=== PATIENT | female | born 1950 | race Caucasian/White ===

== ENCOUNTER 2018-10-25 06:45 | Inpatient (IN) | payer OTHER ==
--- NOTE | 2018-10-25 07:46 | PDOC ---
History of Present Illness - General Chief Complaint: Injury Stated Complaint: FALL Time Seen by Provider: 10/25/18 07:15 - History of Present Illness Initial Comments: Rita Daniels is a 68yo woman with a PMH of HTN, HLD, morbid obesity, and chronic BLE lymphedema who presents reporting slowly worsening leg swelling and several falls at home recently. She reports that she has chronic problems with leg swelling, and she had a previous admission last year at [facility] with "very bad" swelling. At that time, she had not been taking her prescribed medications. She went to rehab after her discharge and was doing much better, but she went back to live in an apartment without assistance afterwards and has slowly been declining since then. She states that she is now compliant with all of her medications. Ms Daniels reports that she was told to elevate her legs, which does improve her leg swelling, but she has not been doing so recently. Subsequently, the leg swelling has worsened over the past few weeks. She feels that it has become much worse over the past week especially. Due to the leg swelling, she says that her legs "give out" when she tries to walk. She is minimally ambulatory and is able to move around her apartment, but she does spend most of her time sitting or laying down. Recently she has had several episodes where she has been unable to support herself. Yesterday evening , she tried to stand from a chair and instead slid to the ground. This is typical of the events, and she denies ever having a fall from standing, LOC, head injury, or other musculoskeletal injury. She denies any chest pain, SOB, dizziness, or other symptoms preceding the falls. Past History - Suicide/Smoking/Psychosocial Hx Smoking History: Never smoked Have you smoked in the past 12 months: No Information on smoking cessation initiated: No Hx Alcohol Use: No Drug/Substance Use Hx: No Review of Systems - Review of Systems Comments:: General: No fevers, no chills, no weight or appetite change, no malaise HEENT: No changes in vision, no changes in hearing, +nasal congestion, no sore throat CV: No chest pain, no palpitations, +chronic BLE edema Pulm: No SOB, no cough, no wheezing GI: No nausea or vomiting, no change in bowel habits, no melena : No frequency, no urgency, no dysuria Musc: See HPI. No recent injury, no back pain. Skin: No rash, no lesions, no erythema Endo: No excessive thirst, no heat/cold intolerance Heme: No unusual bruising or bleeding, no swollen glands Neuro: No syncope, no numbness/tingling, no focal weakness Vasc: No claudication Psych: No recent change in mood, no SI or HI *Physical Exam - Vital Signs Last Vital Signs Temp Pulse Resp BP Pulse Ox 98.1 F 74 18 142/78 100 10/25/18 06:53 10/25/18 06:53 10/25/18 06:53 10/25/18 06:53 10/25/18 06:53 - Physical Exam Comments: General: No acute distress, morbidly obese, malodorous HEENT: PERRL, EOMI, MMM, voice normal, no LAD Cards: RRR, no murmur appreciated Pulm: Comfortable on room air, clear to auscultation bilaterally Abd: Soft, nontender, nondistended, obese Ext: Atraumatic. Notable nonpitting BLE edema. Sensation intact to light touch. Strength 4/5 and equal bilaterally. R heel with small open wound, appears sencondary to minor injury, no surrounding erythema, purulence or sign of infection. No TTP Vasc: Extremities WWP. Skin: No rashes or lesions. BLE skin dirty, flaking Neuro: A&Ox3, CN grossly intact, normal speech, motor/sensory symmetric Psych: Mood appropriate to situation Moderate Sedation - Procedure Monitoring Vital Signs: Procedure Monitoring Vital Signs Temperature 98.1 F 10/25/18 06:53 Pulse Rate 74 10/25/18 06:53 Respiratory Rate 18 10/25/18 06:53 Blood Pressure 142/78 10/25/18 06:53 O2 Sat by Pulse Oximetry (%) 100 10/25/18 06:53 ED Treatment Course - LABORATORY CBC & Chemistry Diagram: 10/25/18 10:09 10/25/18 10:09 Medical Decision Making - Medical Decision Making 10/25/18 07:36 Rita Daniels is a 68yo woman with a PMH of HTN, HLD, morbid obesity, and chronic BLE lymphedema who presents reporting slowly worsening leg swelling and multiple episodes of her legs "not supporting" her over the past week. She reports compliance with her medication but not with leg elevation. - Worsening BLE swelling most likely due to chronic condition, lack of elevation , possibly poor diet - No h/o CHF or kidney disease, but could be contributing - No h/o CAD or CO, but worsening swelling could be due to acute change in cardiac function - CBC, CMP, mag, phos, trop, CXR, EKG to evaluate 10/25/18 09:02 - Following discussion with Dr Munguia, will order BLE venous duplex to rule out DVT. Ms Daniels does not have any significant risk factors other than report of minimal activity/ambulation, but given her habitus cannot rule out by physical exam. Low suspicion, but non-invasive test with minimal risk 10/25/18 10:21 - EKG reviewed. NSR without abnormalities - Difficulty drawing labs in ED, but now sent to lab - Pt to US for duplex 10/25/18 11:00 - Labs reviewed. Unremarkable other than mild hypokalemia and hypomagnesemia - will replete. Trop negative - CXR with enlarged heart, no acute abnormalities - Duplex completed. Reviewed; no thrombus noted. Final radiology read pending - Discussed with Ms Daniels. Plan to admit due to difficulty ambulating and caring for self at home; message sent to admitting team. 10/25/18 11:24 - Spoke to Dr Sahu, will admit for inpatient management. - 40mg IV furosemide for lymphedema. Discussed with Dr Munguia. Rachna Glover PGY1 *DC/Admit/Observation/Transfer Diagnosis at time of Disposition: Lymphedema of both lower extremities - Discharge Dispostion Decision to Admit order: Yes - Referrals - Patient Instructions - Post Discharge Activity
--- NOTE | 2018-10-25 08:14 | PDOC ---
Attending Attestation - Resident Resident Name: Rachna Glover - ED Attending Attestation I have performed the following: I have examined & evaluated the patient, The case was reviewed & discussed with the resident, I agree w/resident's findings & plan, Exceptions are as noted - HPI HPI: 10/25/18 08:20 68 year old female history of hypertension, hyperlipidemia, obesity, chronic bilateral lower extremity lymphedema presents with increasing lower extremities edema for last week and difficulty ambulating. Patient states she typically ambulates with a walker. Noticed that she subjectively feels bilateral heavier lower extremities. She reports adherence to her medications. Denies chest pain or short of breath or recent illnesses. The patient is now unable to get up from her seat. When she tries to get up she slipped right back down. Denies trauma or falls. The patient reported approximately one year ago being admitted to [facility] for the same issue. She was told that this was edema and discharged to subacute rehabilitation which she felt better. She currently lives at home with no assistance. - Physicial Exam PE: 10/25/18 08:20 GENERAL: Awake, alert, and fully oriented, in no acute distress. Morbidity obesity HEAD: No signs of trauma EYES: EOMI, sclera anicteric, conjunctiva clear ENT: Auricles normal inspection, hearing grossly normal, nares paten, Moist mucosa NECK: Normal ROM, supple, LUNGS: Breath sounds equal, clear to auscultation bilaterally. No wheezes, and no crackles HEART: Regular rate and rhythm, normal S1 and S2, no murmurs, rubs or gallops ABDOMEN: Soft, nontender, No guarding, no rebound. No masses EXTREMITIES: Normal range of motion, No clubbing or cyanosis. No cords, erythema, or tenderness. + lower extremity bilateral lymphedema. NEUROLOGICAL: Cranial nerves II through XII grossly intact. Normal speech SKIN: Warm, Dry, normal turgor, no rashes or lesions noted. - Medical Decision Making 10/25/18 08:23 Vital Signs Temp Pulse Resp BP Pulse Ox 98.1 F 74 18 142/78 100 10/25/18 06:53 10/25/18 06:53 10/25/18 06:53 10/25/18 06:53 10/25/18 06:53 68 year old with inability to ambulate 2/2 increasing lower extremity edema. Differential includes: CHF, hypoalbuminemia, LAINEY, bilateral DVTs, worsening lymphedema. Chest xray, labs, UA, Duplex. Given ability to ambulate, pt is unsafe for discharge. Will admit for PT and case management. 10/25/18 11:28 CBC, BMP 10/25/18 10:09 10/25/18 10:09 CMP Sodium 142 mmol/L (136-145) 10/25/18 10:09 Potassium 3.0 mmol/L (3.5-5.1) L 10/25/18 10:09 Chloride 102 mmol/L (98-107) 10/25/18 10:09 Carbon Dioxide 32 mmol/L (21-32) 10/25/18 10:09 Anion Gap 8 MMOL/L (8-16) 10/25/18 10:09 BUN 21 mg/dL (7-18) H 10/25/18 10:09 Creatinine 0.7 mg/dL (0.55-1.3) 10/25/18 10:09 Creat Clearance w eGFR > 60 (>60) 10/25/18 10:09 Random Glucose 101 mg/dL (74-106) 10/25/18 10:09 Calcium 9.2 mg/dL (8.5-10.1) 10/25/18 10:09 Phosphorus 3.9 mg/dL (2.5-4.9) 10/25/18 10:09 Magnesium 1.7 mg/dL (1.8-2.4) L 10/25/18 10:09 Total Bilirubin 0.9 mg/dL (0.2-1) 10/25/18 10:09 AST 24 U/L (15-37) 10/25/18 10:09 ALT 25 U/L (13-61) 10/25/18 10:09 Alkaline Phosphatase 81 U/L (45-117) 10/25/18 10:09 Creatine Kinase 594 IU/L (26-192) H 10/25/18 10:09 Creatine Kinase Index 1.5 % (0.0-5.0) 10/25/18 10:09 CK-MB (CK-2) 9.4 ng/mL (0.5-3.6) H 10/25/18 10:09 Troponin I 0.02 ng/ml (0.00-0.05) 10/25/18 10:09 B-Natriuretic Peptide 182.2 pg/ml (5-125) H 10/25/18 10:09 Total Protein 7.2 g/dl (6.4-8.2) 10/25/18 10:09 Albumin 3.8 g/dl (3.4-5.0) 10/25/18 10:09 Chest xray reviewed. 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 This is likely contributing to her lower extremity swelling. Will need further evaluation as an inpatient. Heart Score/ECG Review #1 ECG reviewed & interpreted by me at: 08:10 10/25/18 08:09 NSR 66, no std/gena, normal axis, normal intervals, QTC 442 msec
[2018-10-25 10:20] LABS: BASO % 0.7 % (0-2.0); EOS % 1.7 % (0-4.5); HEMOGLOBIN 12.5 GM/dL (10.7-15.3); LYMPH % 13.5 % (8-40); MCH 30.6 pg (25.7-33.7); MCHC 34.7 g/dl (32.0-36.0); MEAN CELL VOLUME 88.1 fl (80-96); MEAN PLT VOLUME 8.1 fl (7.5-11.1); MONO % 6.6 % (3.8-10.2); NEUT % 77.5 % (42.8-82.8); PLATELET COUNT 261 K/MM3 (134-434); RBC 4.08 M/mm3 (3.60-5.2); RDW 14.1 % (11.6-15.6); WHITE BLOOD COUNT 8.8 K/mm3 (4.0-10.0)
[2018-10-25 10:52] LABS: ALBUMIN 3.8 g/dl (3.4-5.0); ALK PHOS 81 U/L (45-117); ANION GAP 8 MMOL/L (8-16); BILIRUBIN,TOTAL 0.9 mg/dL (0.2-1); BLOOD UREA NITROGEN 21 mg/dL (7-18); CALCIUM 9.2 mg/dL (8.5-10.1); CHLORIDE 102 mmol/L (98-107); CO2 32 mmol/L (21-32); CREATININE 0.7 mg/dL (0.55-1.3); GLUCOSE,RANDOM 101 mg/dL (74-106); MAGNESIUM 1.7 mg/dL (1.8-2.4); N-TERMINAL BNP 182.2 pg/ml (5-125); PHOSPHOROUS 3.9 mg/dL (2.5-4.9); SGOT/AST 24 U/L (15-37); SGPT/ALT 25 U/L (13-61); SODIUM 142 mmol/L (136-145); TOT PROT 7.2 g/dl (6.4-8.2)
[2018-10-25] MEDS ORDERED: POTASSIUM CHLORIDE TABS 20 MEQ TABLET.ER (FP) PO ONE ×2 (10:55→18:00)
[2018-10-25] MEDS ORDERED: MAGNESIUM SULF 50% (8.12 MEQ/2 ML-1 GM VIAL) IVPB ONE (10:55)
[2018-10-25] MEDS ORDERED: MAGNESIUM 1GM/D5W - 2 GM/200 ML IVPB IVPB ONE (11:12)
[2018-10-25] MEDS ORDERED: FUROSEMIDE 40 MG/4 ML INJECTABLE VIAL IVPUSH ONE (11:20)
--- NOTE | 2018-10-25 12:51 | HP ---
CHIEF COMPLAINT:LE pain and inability to ambulate PCP: Associated with [facility] HISTORY OF PRESENT ILLNESS: 68 y/o F w/PMH of HTN, HLD, morbid obesity, chronic B/L LE lymphedema presents for inability to ambulate and pain behind her knees. She has noted increased swelling her legs over the past few weeks which has been particularly worse over the last week. She has also had pain behind her knees for the past week and for the past 4 days has not been able to ambulate. She has fallen due to her inability to ambulate and but denies any trauma to her head and was able to slowly lower herself down last when she fell yesterday. She was seen at [facility] last year for a similar issue with swelling in her legs and was doing better after discharge at that time. She denies any cough, fevers, chills, nausea, vomiting, diarrhea, change in urination, SUTTON, dizziness, CP, SOB. She reports being compliant with her meds. ER course was notable for: (1) Lasix IV 40mg, Mg Sulf, K-dur PO (2) CXR (3) PAST MEDICAL HISTORY: HTN, HLD, morbid obesity, chronic B/L LE lymphedema PAST SURGICAL HISTORY: denies any surgeries Social History: Smokin/2 ppd for 3-4 years. Quit 8 months ago. Exposed to second hand smoke daily at home. Alcohol: Denies Drugs: Denies Family History: Lung Ca in grandfather HOME MEDICATIONS: Home Medications Medication Instructions Recorded Aspirin [Aspirin EC] 81 mg PO 10/25/18 Atorvastatin Ca [Lipitor] 20 mg PO HS 10/25/18 Calcium Carbonate/Vitamin D3 1 each PO 10/25/18 [Calcium 500 mg-Vit D3 600 Unit] Hydrochlorothiazide [Hctz -] 25 mg PO DAILY 10/25/18 Metoprolol Succinate 25 mg PO 10/25/18 Potassium Chloride 20 meq PO BID 10/25/18 REVIEW OF SYSTEMS CONSTITUTIONAL: Absent: fever, chills HEENT: Absent: visual changes CARDIOVASCULAR: +peripheral edema Absent: chest pain, syncope, palpitations, irregular heart rate, lightheadedness RESPIRATORY: Absent: cough, shortness of breath GASTROINTESTINAL: Absent: abdominal pain, nausea, vomiting, diarrhea, constipation, hematochezia GENITOURINARY: Absent: dysuria, frequency MUSCULOSKELETAL: +LE weakness and pain behind knees, inability to walk NEUROLOGIC: Absent: headache, dizziness PHYSICAL EXAMINATION Vital Signs - 24 hr 10/25/18 06:53 Temperature 98.1 F Pulse Rate 74 Respiratory 18 Rate Blood Pressure 142/78 O2 Sat by Pulse 100 Oximetry (%) GENERAL: Awake, alert, and fully oriented, in no acute distress. EYES: Pupils equal, round and reactive to light. No lid lag. EARS, NOSE, THROAT: Ears normal, nares patent NECK: Normal range of motion LUNGS: Breath sounds equal, clear to auscultation bilaterally. No wheezes, and no crackles. No accessory muscle use. HEART: Regular rate and rhythm, normal S1 and S2. 1/6 systolic murmur best heard in aortic region. ABDOMEN: Obese, Soft, nontender, not distended, normoactive bowel sounds, no guarding, no rebound, no masses. LOWER EXTREMITIES: 4+ b/l LE edema. Healing skin patches on soles of feet. No open lesions noted on legs. NEUROLOGICAL: Normal speech. PSYCHIATRIC: Cooperative. Good eye contact. Appropriate mood and affect. SKIN: Warm, dry Laboratory Results - last 24 hr 10/25/18 10/25/18 10:09 10:09 WBC 8.8 RBC 4.08 Hgb 12.5 Hct 36.0 MCV 88.1 MCH 30.6 MCHC 34.7 RDW 14.1 Plt Count 261 MPV 8.1 Absolute Neuts (auto) 6.9 Neutrophils % 77.5 Lymphocytes % 13.5 Monocytes % 6.6 Eosinophils % 1.7 Basophils % 0.7 Nucleated RBC % 0 Sodium 142 Potassium 3.0 L Chloride 102 Carbon Dioxide 32 Anion Gap 8 BUN 21 H Creatinine 0.7 Creat Clearance w eGFR > 60 Random Glucose 101 Calcium 9.2 Phosphorus 3.9 Magnesium 1.7 L Total Bilirubin 0.9 AST 24 ALT 25 Alkaline Phosphatase 81 Creatine Kinase 594 H Creatine Kinase Index 1.5 CK-MB (CK-2) 9.4 H Troponin I 0.02 B-Natriuretic Peptide 182.2 H Total Protein 7.2 Albumin 3.8 Imaging: CXR: Cardiomegaly. Unfolded aorta. Degenerative changes. Clear Lungs. ASSESSMENT/PLAN: 68 y/o F w/PMH of HTN, HLD, morbid obesity, chronic B/L LE lymphedema presents for inability to walk and LE pain. -Inability to ambulate secondary to worsening of chronic LE lymphedema and possible jamil's cysts -U/S done in ER reported as jamil cysts and no DVTs -Lasix 40 mg IV qd -PT -HTN -c/w diltiazem, hctz, lisinopril, metoprolol succ -HLD -c/w atorvastatin -DVT ppx -Lovenox SQ daily -FEN -no fluids -Monitor lytes -Hypokalemia repleted with 40 meq PO potassium. Will give another 40 meq PO potassium -Mg repleted in ER -Cardiac/low salt diet -Dispo: Monitor on M/S Visit type - Emergency Visit Emergency Visit: Yes ED Registration Date: 10/25/18 Care time: The patient presented to the Emergency Department on the above date and was hospitalized for further evaluation of their emergent condition. - New Patient This patient is new to me today: Yes Date on this admission: 10/25/18 - Critical Care Critical Care patient: No
--- NOTE | 2018-10-25 13:17 | PN ---
Teaching Attending Note Name of Resident: Josh Brown ATTENDING PHYSICIAN STATEMENT I saw and evaluated the patient. I reviewed the resident's note and discussed the case with the resident. I agree with the resident's findings and plan as documented. SUBJECTIVE: Complains of worsening LE pain and edema, decreased mobility, fall. No tenderness/redness/swelling/fever/chills. OBJECTIVE: Afebrile, Hemodynamically Stable. Last Vital Signs Temp Pulse Resp BP Pulse Ox 98.1 F 74 18 142/78 100 10/25/18 06:53 10/25/18 06:53 10/25/18 06:53 10/25/18 06:53 10/25/18 06:53 HEENT - Atraumatic, Normocephalic. Heart - S1, S2, RRR Lungs - clear to auscultation. Abdomen - High BMI, soft, non-tender. Bowel Sounds normal. Extremities - Severe edema+++. No calf/popliteal tenderness. Neuro - AAO x 3. Tone/Power normal all 4 extremities. Laboratory Results - last 24 hr 10/25/18 10/25/18 10:09 10:09 WBC 8.8 RBC 4.08 Hgb 12.5 Hct 36.0 MCV 88.1 MCH 30.6 MCHC 34.7 RDW 14.1 Plt Count 261 MPV 8.1 Absolute Neuts (auto) 6.9 Neutrophils % 77.5 Lymphocytes % 13.5 Monocytes % 6.6 Eosinophils % 1.7 Basophils % 0.7 Nucleated RBC % 0 Sodium 142 Potassium 3.0 L Chloride 102 Carbon Dioxide 32 Anion Gap 8 BUN 21 H Creatinine 0.7 Creat Clearance w eGFR > 60 Random Glucose 101 Calcium 9.2 Phosphorus 3.9 Magnesium 1.7 L Total Bilirubin 0.9 AST 24 ALT 25 Alkaline Phosphatase 81 Creatine Kinase 594 H Creatine Kinase Index 1.5 CK-MB (CK-2) 9.4 H Troponin I 0.02 B-Natriuretic Peptide 182.2 H Total Protein 7.2 Albumin 3.8 ASSESSMENT AND PLAN: 68 year old Obese female with HTN, Chronic bilateral Lymphedema, HLD, Depression , presents with worsening LE edema, worsening mobility, fall yesterday - slide of her chair onto the floor without head injury or loss of consciousness. She denies any tenderness/erythema/fever/chills. 1. Acute on Chronic Lower Extremity Lymphedema with discomfort and resulting decreased mobility/ambulatory dysfunction/fall Will treat with IV Lasix Monitor electrolytes PT requested. 2. HTN - Continue Diltiazem, HCTZ, Lisinopril, Toprol XL 3. HLD - Continue Simvastatin 4. Hypokalemia - will replete DVT Px - Lovenox SQ.
[2018-10-25] MEDS ORDERED: ACETAMINOPHEN 325 MG TABLET (FP) PO PRN (14:25)
[2018-10-25] MEDS: ENOXAPARIN NA (PORCINE) 40 MG/0.4 ML DISP.SYRIN SQ SCH (18:27)
[2018-10-25] MEDS: ATORVASTATIN CA 20 MG TABLET (FP) PO SCH (21:42)
[2018-10-26 06:25] LABS: BASO % 0.7 % (0-2.0); EOS % 2.8 % (0-4.5); HEMATOCRIT 32.5 % (32.4-45.2); HEMOGLOBIN 11.4 GM/dL (10.7-15.3); LYMPH % 19.4 % (8-40); MCH 30.6 pg (25.7-33.7); MEAN CELL VOLUME 87.6 fl (80-96); MEAN PLT VOLUME 8.2 fl (7.5-11.1); MONO % 7.4 % (3.8-10.2); NEUT % 69.7 % (42.8-82.8); PLATELET COUNT 239 K/MM3 (134-434); RBC 3.71 M/mm3 (3.60-5.2); WHITE BLOOD COUNT 6.8 K/mm3 (4.0-10.0)
[2018-10-26 06:53] LABS: ALK PHOS 61 U/L (45-117); ANION GAP 8 MMOL/L (8-16); BILIRUBIN,TOTAL 0.8 mg/dL (0.2-1); BLOOD UREA NITROGEN 22 mg/dL (7-18); CALCIUM 8.8 mg/dL (8.5-10.1); CHLORIDE 103 mmol/L (98-107); CO2 31 mmol/L (21-32); CREATININE 0.7 mg/dL (0.55-1.3); GLUCOSE,RANDOM 100 mg/dL (74-106); MAGNESIUM 1.9 mg/dL (1.8-2.4); PHOSPHOROUS 4.1 mg/dL (2.5-4.9); POTASSIUM 3.6 mmol/L (3.5-5.1); SGOT/AST 18 U/L (15-37); SGPT/ALT 19 U/L (13-61); SODIUM 142 mmol/L (136-145); TOT PROT 5.8 g/dl (6.4-8.2)
[2018-10-26] MEDS: LISINOPRIL 20 MG TABLET (FP) PO SCH (12:11)
[2018-10-26] MEDS: PARoxetine HCL 20 MG TABLET (FP) PO SCH (12:11)
[2018-10-26] MEDS: ASPIRIN COATED 81 MG TABLET.EC PO SCH (12:11)
[2018-10-26] MEDS: HYDROCHLOROTHIAZIDE 25 MG TABLET (FP) PO SCH (12:11)
[2018-10-26] MEDS: metoPROLOL SUCCINATE 25 MG TAB.SR.24H (FP) PO SCH (12:11)
[2018-10-26] MEDS: FUROSEMIDE 40 MG/4 ML INJECTABLE VIAL IVPUSH SCH (12:12)
[2018-10-26] MEDS: ENOXAPARIN NA (PORCINE) 40 MG/0.4 ML DISP.SYRIN SQ SCH (12:12)
[2018-10-26 13:38] VITALS: BMI 52.8
--- NOTE | 2018-10-26 14:24 | PN ---
Progress Note (short form) - Note Progress Note: SUBJECTIVE: Feels some improvement in her Le edema, feeling less tight with increased mobility of toes and ankles. No tenderness/redness/swelling/fever/ chills. OBJECTIVE: Afebrile, Hemodynamically Stable. Last Vital Signs Temp Pulse Resp BP Pulse Ox 98.3 F 94 H 20 148/94 99 10/26/18 11:55 10/26/18 11:55 10/26/18 11:55 10/26/18 11:55 10/25/18 21:00 HEENT - Atraumatic, Normocephalic. Heart - S1, S2, RRR Lungs - clear to auscultation. Abdomen - High BMI, soft, non-tender. Bowel Sounds normal. Extremities - Severe edema++. No erythema. No calf/popliteal tenderness. Neuro - AAO x 3. Tone/Power normal all 4 extremities. Laboratory Results - last 24 hr 10/26/18 10/26/18 05:50 05:50 WBC 6.8 RBC 3.71 Hgb 11.4 Hct 32.5 MCV 87.6 MCH 30.6 MCHC 35.0 RDW 14.0 Plt Count 239 MPV 8.2 Absolute Neuts (auto) 4.7 Neutrophils % 69.7 Lymphocytes % 19.4 D Monocytes % 7.4 Eosinophils % 2.8 Basophils % 0.7 Nucleated RBC % 0 Sodium 142 Potassium 3.6 Chloride 103 Carbon Dioxide 31 Anion Gap 8 BUN 22 H Creatinine 0.7 Creat Clearance w eGFR > 60 Random Glucose 100 Calcium 8.8 Phosphorus 4.1 Magnesium 1.9 Total Bilirubin 0.8 AST 18 ALT 19 Alkaline Phosphatase 61 Total Protein 5.8 L Albumin 3.0 L Current Medications Generic Name Dose Route Start Last Admin Trade Name Freq PRN Reason Stop Dose Admin Acetaminophen 650 mg 10/25/18 14:25 Tylenol - PO Q6H PRN PAIN 1-3 Aspirin 81 mg 10/26/18 10:00 10/26/18 12:11 Ecotrin - PO 81 mg DAILY YULI Administration Atorvastatin Calcium 20 mg 10/25/18 22:00 10/25/18 21:42 Lipitor - PO 20 mg HS YULI Administration Diltiazem HCl 180 mg 10/26/18 10:00 10/26/18 12:11 Cardizem Cd - PO 180 mg DAILY YULI Administration Enoxaparin Sodium 40 mg 10/25/18 14:30 10/26/18 12:12 Lovenox - SQ 40 mg DAILY YULI Administration Furosemide 40 mg 10/26/18 10:00 10/26/18 12:12 Lasix Injection - IVPUSH 40 mg DAILY YULI Administration Hydrochlorothiazide 25 mg 10/26/18 10:00 10/26/18 12:11 Hctz - PO 25 mg DAILY YULI Administration Lisinopril 40 mg 10/26/18 10:00 10/26/18 12:11 Prinivil PO 40 mg DAILY YULI Administration Metoprolol Succinate 25 mg 10/26/18 10:00 10/26/18 12:11 Toprol Xl - PO 25 mg DAILY YULI Administration Paroxetine HCl 40 mg 10/26/18 10:00 10/26/18 12:11 Paxil - PO 40 mg DAILY YULI Administration ASSESSMENT AND PLAN: 68 year old Obese female with HTN, Chronic bilateral Lymphedema, HLD, Depression , presents with worsening LE edema, worsening mobility, fall 10/24 - slid of her chair onto the floor without head injury or loss of consciousness. She denies any LE tenderness/erythema or fever/chills. 1. Acute on Chronic Lower Extremity Lymphedema with discomfort and resulting decreased mobility/ambulatory dysfunction/fall Will continue IV Lasix Monitor electrolytes PT eval and likely SNF/Rehab placement. Patient requesting Ortho eval for BIlateral Hidalgo Cysts. 2. HTN - Continue Diltiazem, HCTZ, Lisinopril, Toprol XL 3. HLD - Continue Simvastatin 4. Hypokalemia - resolved s/p repletion. 5. Depression - continue Paxil. DVT Px - Lovenox SQ. Visit type - Emergency Visit Emergency Visit: Yes ED Registration Date: 10/25/18 Care time: The patient presented to the Emergency Department on the above date and was hospitalized for further evaluation of their emergent condition. - New Patient This patient is new to me today: No - Critical Care Critical Care patient: No - Discharge Referral Referred to [facility] No
--- NOTE | 2018-10-26 17:08 | CONSULT ---
Consult - text type - Consultation Consultation Note: ORTHOPEDIC SURGERY CONSULTATION NOTE Department of Orthopedic Surgery HISTORY OF PRESENT ILLNESS Rita Daniels is a 68 year old female with a history of lymphedema, morbid obesity, HTN, HLD who was admitted to [facility] with bilateral knee pain, worsening bilateral lower extremity swelling, and difficulty ambulating. The orthopedic service was consulted for bilateral knee pain and bilateral Hidalgo's cyst seen on ultrasound. Her knee pain began insidiously about 2 years ago with no specific incident. She was admitted once before for a the same problem at an outside hospital. She went to rehab and her condition improved. Her knee pain has since gotten progressively worse and she recently noticed increasing swelling in both lower extremities. She has had difficulty ambulating over the past 3 days. The patient notes sharp pain to bilateral knees which improves with rest. She denies any other pain. Denies numbness, tingling or other constitutional complaints. Denies tobacco use, drug use, alcohol abuse. The patient lives with family and uses a walker at baseline. Active Problems Problem Status Category Onset Lymphedema of both lower extremities Acute Medical Social History Smoking history Never smoked Hx Alcohol Use No Allergies Allergy/AdvReac Type Severity Reaction Status Date / Time No Known Allergies Allergy Verified 10/25/18 14:25 Active Medications Generic Name Dose Route Start Last Admin Trade Name Freq PRN Reason Stop Dose Admin Acetaminophen 650 mg 10/25/18 14:25 Tylenol - PO Q6H PRN PAIN 1-3 Aspirin 81 mg 10/26/18 10:00 10/26/18 12:11 Ecotrin - PO 81 mg DAILY YULI Administration Atorvastatin Calcium 20 mg 10/25/18 22:00 10/25/18 21:42 Lipitor - PO 20 mg HS YULI Administration Diltiazem HCl 180 mg 10/26/18 10:00 10/26/18 12:11 Cardizem Cd - PO 180 mg DAILY YULI Administration Enoxaparin Sodium 40 mg 10/25/18 14:30 10/26/18 12:12 Lovenox - SQ 40 mg DAILY YULI Administration Furosemide 40 mg 10/26/18 10:00 10/26/18 12:12 Lasix Injection - IVPUSH 40 mg DAILY YULI Administration Hydrochlorothiazide 25 mg 10/26/18 10:00 10/26/18 12:11 Hctz - PO 25 mg DAILY YULI Administration Lisinopril 40 mg 10/26/18 10:00 10/26/18 12:11 Prinivil PO 40 mg DAILY YULI Administration Metoprolol Succinate 25 mg 10/26/18 10:00 10/26/18 12:11 Toprol Xl - PO 25 mg DAILY YULI Administration Paroxetine HCl 40 mg 10/26/18 10:00 10/26/18 12:11 Paxil - PO 40 mg DAILY YULI Administration Vital Signs (last) Temp Pulse Resp BP Pulse Ox 99.9 F H 93 H 20 102/63 99 10/26/18 14:00 10/26/18 14:00 10/26/18 14:00 10/26/18 14:00 10/25/18 21:00 Intake and Output 10/24/18 10/25/18 10/26/18 23:59 23:59 23:59 Intake Total 455 Balance 455 Intake: Oral 455 Other: Voiding Method Incontinent Incontinent # Unmeasured Voids Void 3 2 Bowel Movement No Weight 297 lb 289 lb Height 5 ft 2 in 5 ft 2 in Body Mass Index (BMI) 54.3 52.8 Weight Measurement Method Built in [facility] Patient Lift Scale Weight Measurement Method Estimated by Staff Laboratory 10/26/18 05:50 10/26/18 05:50 FAMILY HISTORY Unknown REVIEW OF SYMPTOMS A twelve-point review of systems was performed and was negative except as noted in HPI. PHYSICAL EXAM Constitutional: Alert and oriented to person, place, and time. No acute distress , appropriate mood and affect. HEENT: Normocephalic, atraumatic Cardiovascular: Regular rate and rhythm, extremities warm, no cyanosis. Pulmonary: Breathing comfortably, normal air movement, no audible wheezing. Right Upper Extremity: No tenderness to palpation. Full passive and active ROM, free from pain. 2+ radial pulses; Cap refill brisk. Left Upper Extremity: No tenderness to palpation. Full passive and active ROM, free from pain. 2+ radial pulses; Cap refill brisk. Right Lower Extremity: Significant lymphedema. Skin warm, dry, and intact. Muscle mass equal and symmetric to contralateral side. No atrophy noted. No masses or effusions noted. Tender to palpation at right knee; nontender throughout rest of extremity. No cords or calf tenderness. Passive and active ROM limited due to pain. EHL/TA/GS motor intact; SILT distally; 2+ DP pulses; Cap refill brisk. Compartments soft. Tone and reflexes normal. Left Lower Extremity: Significant lymphedema. Skin warm, dry, and intact. Muscle mass equal and symmetric to contralateral side. No atrophy noted. No masses or effusions noted. Tender to palpation at right knee; nontender throughout rest of extremity. No cords or calf tenderness. Passive and active ROM limited due to pain. EHL/TA/GS motor intact; SILT distally; 2+ DP pulses; Cap refill brisk. Compartments soft. Tone and reflexes normal. IMAGING I personally reviewed bilateral knee radiographs. 2 views of each knee are limited. They show significant degenerative changes of bilateral knees. No fracture or dislocation. Doppler ultrasound negative for DVT. ASSESSMENT AND PLAN Rita Daniels is a 68 year old female with a history of lymphedema presenting with (1) bilateral knee arthritis, and (2) bilateral Hidalgo's cysts. - We have reviewed the imaging and clinical findings in detail, as well as their potential implications. We had a long discussion with the patient about her knees. We discussed surgical and nonsurgical options for the treatment of knee arthritis. She should work to maintain her range of motion. She should also ice frequently and avoid activities that make her knees hurt. We discussed the use of tylenol, NSAIDs, cortisone injections, physical therapy, bracing, and a weight loss program. Due to the significant swelling and lymphedema in her lower extremities, she is not a candidate for a total knee replacement. - No acute orthopedic intervention at this time - Pain control: minimize narcotic use - NSAIDs if patient is able to tolerate and there are no medical contraindications - DVT prophylaxis - Ice/Elevation - Elevate HOB, encourage oral intake - Appreciate medical management (Nutrition optimization, decubitus precautions heel/sacrum) - PT/OT to work on decreasing swelling/lymphedema; work on quadriceps and hamstring stretching and strengthening exercises, with core straightening. - WBAT All questions were answered. Thank you for involving our team in the care of this patient. We will follow the patient with you. Please call us at [phone] with questions.
--- NOTE | 2018-10-26 19:10 | EKG ---
Test Reason : Blood Pressure : / mmHG Vent. Rate : 066 BPM Atrial Rate : 066 BPM P-R Int : 154 ms QRS Dur : 086 ms QT Int : 422 ms P-R-T Axes : 057 039 076 degrees QTc Int : 442 ms NORMAL SINUS RHYTHM NORMAL ECG NO PREVIOUS ECGS AVAILABLE Confirmed by VALENTINE BROWNLEE MD ([id number]) on 10/26/2018 7:09:51 PM Referred By: Confirmed By:VALENTINE BROWNLEE MD
[2018-10-26] MEDS: ATORVASTATIN CA 20 MG TABLET (FP) PO SCH (22:04)
[2018-10-27] MEDS ORDERED: PT OWN MED DRAWER 7, Y5N ONE (09:34)
[2018-10-27] MEDS: FUROSEMIDE 40 MG/4 ML INJECTABLE VIAL IVPUSH SCH (10:37)
[2018-10-27] MEDS: PARoxetine HCL 20 MG TABLET (FP) PO SCH (10:37)
[2018-10-27] MEDS: ENOXAPARIN NA (PORCINE) 40 MG/0.4 ML DISP.SYRIN SQ SCH (10:37)
[2018-10-27] MEDS: HYDROCHLOROTHIAZIDE 25 MG TABLET (FP) PO SCH (10:38)
[2018-10-27] MEDS: metoPROLOL SUCCINATE 25 MG TAB.SR.24H (FP) PO SCH (10:38)
[2018-10-27] MEDS: ASPIRIN COATED 81 MG TABLET.EC PO SCH (10:38)
[2018-10-27] MEDS: LISINOPRIL 20 MG TABLET (FP) PO SCH (10:38)
--- NOTE | 2018-10-27 10:42 | PN ---
Physical Exam: SUBJECTIVE: Patient seen and examined at bedside this morning. She endorses improvement of her lower extremity swelling, and weakness bilaterally. She denies parasthesias, numbness of her lower extremities. She denies fevers, chills, shortness of breath, chest pain, palpitations, abdominal pain, nausea, vomiting. OBJECTIVE: Vital Signs Period Temp Pulse Resp BP Sys/Chaves Pulse Ox Last 24 Hr 98.1 F-99.9 F 74-94 18-20 102-148/63-94 98 GENERAL: The patient is awake, alert, and fully oriented, in no acute distress. HEAD: Normocephalic, atraumatic EYES: PERRL, extraocular movements intact, sclera anicteric. ENT: Oropharynx clear without exudates, moist mucous membranes. NECK: Trachea midline, full range of motion, supple. LUNGS: Breath sounds equal, clear to auscultation bilaterally, no wheezes, no crackles. HEART: Regular rate and rhythm, S1, S2 without murmur, rub or gallop. ABDOMEN: Obese. Soft, nontender, nondistended. Normoactive bowel sounds, no guarding, no rebound tenderness. EXTREMITIES: 2+ radial and dorsalis pedis pulses b/l. Significant lymphedema b/ l lower extremities. NEUROLOGICAL: Cranial nerves II through XII grossly intact. Normal speech. PSYCH: Normal mood, normal affect upon my encounter today. SKIN: Warm, dry. Active Medications Generic Name Dose Route Start Last Admin Trade Name Freq PRN Reason Stop Dose Admin Acetaminophen 650 mg 10/25/18 14:25 Tylenol - PO Q6H PRN PAIN 1-3 Aspirin 81 mg 10/26/18 10:00 10/26/18 12:11 Ecotrin - PO 81 mg DAILY YULI Administration Atorvastatin Calcium 20 mg 10/25/18 22:00 10/26/18 22:04 Lipitor - PO 20 mg HS YULI Administration Diltiazem HCl 180 mg 10/26/18 10:00 10/26/18 12:11 Cardizem Cd - PO 180 mg DAILY YULI Administration Enoxaparin Sodium 40 mg 10/25/18 14:30 10/26/18 12:12 Lovenox - SQ 40 mg DAILY YULI Administration Furosemide 40 mg 10/26/18 10:00 10/26/18 12:12 Lasix Injection - IVPUSH 40 mg DAILY YULI Administration Hydrochlorothiazide 25 mg 10/26/18 10:00 10/26/18 12:11 Hctz - PO 25 mg DAILY YULI Administration Lisinopril 40 mg 10/26/18 10:00 10/26/18 12:11 Prinivil PO 40 mg DAILY YULI Administration Metoprolol Succinate 25 mg 10/26/18 10:00 10/26/18 12:11 Toprol Xl - PO 25 mg DAILY YULI Administration Paroxetine HCl 40 mg 10/26/18 10:00 10/26/18 12:11 Paxil - PO 40 mg DAILY YULI Administration ASSESSMENT/PLAN: Patient is a 68 year old female with history of hypertension, hyperlipidemia, morbid obesity, chronic bilateral lower extremity lymphedema presents due to knee pain. Chronic lymphedema, acute exacerbation -Patient reports improvement of strength, denies numbness, parasthesias -Lasix 40mg IV -Physical therapy evaluation Bilateral knee arthritis -Knee Xrays confirm arthritic changes in bilateral knees -Orthopedic surgery consult appreciated. No surgical intervention at this time. Hypertension -Diltiazem 180mg PO dialy -Lisinopril 40mg PO daily -Hydrochlorothiazide 25mg PO daily -Metoprolol 25mg PO daily Hyperlipidemia -Atorvastatin 20mg PO HS Depression -Paxil 20mg PO daily Morbid obesity -Counselled patient regarding weight loss, healthy diet, and exercise. -food service tray attendant consult Prophylaxis -Lovenox 40mg subq daily FEN -No IV fluids -Follow CMP -Sodium controlled diet Disposition -Continue care in medical surgical floor. Physical therapist follow up, will likely require rehab placement. Visit type - Emergency Visit Emergency Visit: Yes ED Registration Date: 10/25/18 Care time: The patient presented to the Emergency Department on the above date and was hospitalized for further evaluation of their emergent condition. - New Patient This patient is new to me today: Yes Date on this admission: 10/27/18 - Critical Care Critical Care patient: No - Discharge Referral Referred to [facility] No
--- NOTE | 2018-10-27 12:04 | PN ---
Teaching Attending Note Name of Resident: Trevor Hastings ATTENDING PHYSICIAN STATEMENT I saw and evaluated the patient. I reviewed the resident's note and discussed the case with the resident. I agree with the resident's findings and plan as documented. SUBJECTIVE: Reports some improvement in LE edema, feeling less tight with increased mobility of toes and ankles. Still feels unsteady on her feet. No limb tenderness/redness/swelling/fever/chills. OBJECTIVE: Afebrile, Hemodynamically Stable. Last Vital Signs Temp Pulse Resp BP Pulse Ox 98.5 F 88 18 148/79 98 10/27/18 09:13 10/27/18 09:13 10/27/18 09:13 10/27/18 09:13 10/27/18 10:00 HEENT - Atraumatic, Normocephalic. Heart - S1, S2, RRR Lungs - clear to auscultation. Abdomen - High BMI, soft, non-tender. Bowel Sounds normal. Extremities - Severe edema++. No erythema. No calf/popliteal tenderness. Difficult to mobilize. Neuro - AAO x 3. Tone/Power normal all 4 extremities. Current Medications Generic Name Dose Route Start Last Admin Trade Name Freq PRN Reason Stop Dose Admin Acetaminophen 650 mg 10/25/18 14:25 Tylenol - PO Q6H PRN PAIN 1-3 Aspirin 81 mg 10/26/18 10:00 10/27/18 10:38 Ecotrin - PO 81 mg DAILY YULI Administration Atorvastatin Calcium 20 mg 10/25/18 22:00 10/26/18 22:04 Lipitor - PO 20 mg HS YULI Administration Diltiazem HCl 180 mg 10/26/18 10:00 10/27/18 10:37 Cardizem Cd - PO 180 mg DAILY YULI Administration Enoxaparin Sodium 40 mg 10/25/18 14:30 10/27/18 10:37 Lovenox - SQ 40 mg DAILY YULI Administration Furosemide 40 mg 10/26/18 10:00 10/27/18 10:37 Lasix Injection - IVPUSH 40 mg DAILY YULI Administration Hydrochlorothiazide 25 mg 10/26/18 10:00 10/27/18 10:38 Hctz - PO 25 mg DAILY YULI Administration Lisinopril 40 mg 10/26/18 10:00 10/27/18 10:38 Prinivil PO 40 mg DAILY YULI Administration Metoprolol Succinate 25 mg 10/26/18 10:00 10/27/18 10:38 Toprol Xl - PO 25 mg DAILY YULI Administration Paroxetine HCl 40 mg 10/26/18 10:00 10/27/18 10:37 Paxil - PO 40 mg DAILY YULI Administration ASSESSMENT AND PLAN: 68 year old Obese female with HTN, Chronic bilateral Lymphedema, HLD, Depression , presents with worsening LE edema, worsening mobility, fall 10/24 - slid of her chair onto the floor without head injury or loss of consciousness. She denies any LE tenderness/erythema or fever/chills. 1. Acute on Chronic Lower Extremity Lymphedema with discomfort and resulting decreased mobility/ambulatory dysfunction/fall Will continue IV Lasix - can transition to oral Lasix Monitor electrolytes PT eval and likely SNF/Rehab placement. 2. OA Knees with bilateral Hidalgo's Cysts. R and L Knee Xrays - Arthritic changes, excessive soft tissue surrounding. Evaluated by Ortho - not for intervention at this time. Recommends ice/ elevation prn and PT/OT to work on decreasing swelling/lymphedema with WBAT. PT eval requested. 3. HTN - Continue Diltiazem, HCTZ, Lisinopril, Toprol XL 4. HLD - Continue Simvastatin 5. Hypokalemia - resolved s/p repletion. 6. Depression - continue Paxil. DVT Px - Lovenox SQ.
--- NOTE | 2018-10-27 13:06 | PN ---
Progress Note (short form) - Note Progress Note: ORTHOPEDIC SURGERY PROGRESS NOTE Department of Orthopedic Surgery SUBJECTIVE No acute events overnight. No new complaints currently. Patient was seen by physical therapy but she was unable to get up and ambulate. Denies chest pain, shortness of breath, or calf pain. No nausea or vomiting. Tolerating oral intake. Pain control improving. Intake & Output 10/25/18 10/26/18 10/27/18 23:59 23:59 23:59 Intake Total 455 830 Balance 455 830 Intake: Oral 455 830 Other: Voiding Method Incontinent Incontinent Incontinent # Unmeasured Voids Void 3 2 2 Bowel Movement No Weight 297 lb 289 lb 280 lb 3.2 oz Height 5 ft 2 in 5 ft 2 in Body Mass Index (BMI) 54.3 52.8 Weight Measurement Method Built in [facility] Patient Lift Scale Patient Lift Scale Weight Measurement Method Estimated by Staff Active Medications Generic Name Dose Route Start Last Admin Trade Name Freq PRN Reason Stop Dose Admin Acetaminophen 650 mg 10/25/18 14:25 Tylenol - PO Q6H PRN PAIN 1-3 Aspirin 81 mg 10/26/18 10:00 10/27/18 10:38 Ecotrin - PO 81 mg DAILY YUIL Administration Atorvastatin Calcium 20 mg 10/25/18 22:00 10/26/18 22:04 Lipitor - PO 20 mg HS YULI Administration Diltiazem HCl 180 mg 10/26/18 10:00 10/27/18 10:37 Cardizem Cd - PO 180 mg DAILY YULI Administration Enoxaparin Sodium 40 mg 10/25/18 14:30 10/27/18 10:37 Lovenox - SQ 40 mg DAILY YULI Administration Furosemide 40 mg 10/28/18 10:00 Lasix - PO DAILY YULI Hydrochlorothiazide 25 mg 10/26/18 10:00 10/27/18 10:38 Hctz - PO 25 mg DAILY YULI Administration Lisinopril 40 mg 10/26/18 10:00 10/27/18 10:38 Prinivil PO 40 mg DAILY YULI Administration Metoprolol Succinate 25 mg 10/26/18 10:00 10/27/18 10:38 Toprol Xl - PO 25 mg DAILY YULI Administration Paroxetine HCl 40 mg 10/26/18 10:00 10/27/18 10:37 Paxil - PO 40 mg DAILY YULI Administration Vital Signs (last) Temp Pulse Resp BP Pulse Ox 98.5 F 88 18 148/79 98 10/27/18 09:13 10/27/18 09:13 10/27/18 09:13 10/27/18 09:13 10/27/18 10:00 Laboratory 10/26/18 05:50 10/26/18 05:50 PHYSICAL EXAMINATION General: Alert, oriented, cooperative and no distress. Right Lower Extremity: Significant lymphedema. Skin warm, dry, and intact. Muscle mass equal and symmetric to contralateral side. No atrophy noted. No masses or effusions noted. Tender to palpation at right knee; nontender throughout rest of extremity. No cords or calf tenderness. Passive and active ROM limited due to pain. EHL/TA/GS motor intact; SILT distally; 2+ DP pulses; Cap refill brisk. Compartments soft. Tone and reflexes normal. Left Lower Extremity: Significant lymphedema. Skin warm, dry, and intact. Muscle mass equal and symmetric to contralateral side. No atrophy noted. No masses or effusions noted. Tender to palpation at right knee; nontender throughout rest of extremity. No cords or calf tenderness. Passive and active ROM limited due to pain. EHL/TA/GS motor intact; SILT distally; 2+ DP pulses; Cap refill brisk. Compartments soft. Tone and reflexes normal. ASSESSMENT AND PLAN 68 year old female with bilateral lymphedema and bilateral knee osteoarthritis - Pain control - DVT prophylaxis - Ice/Elevation - Elevate HOB, encourage oral intake - Appreciate medical management (Nutrition optimization, decubitus precautions heel/sacrum) - PT/OT; WBAT with assistance Anil Magaña DO Orthopedic Surgery
[2018-10-27 16:07] LABS: ANION GAP 10 MMOL/L (8-16); BLOOD UREA NITROGEN 14 mg/dL (7-18); CALCIUM 8.9 mg/dL (8.5-10.1); CHLORIDE 97 mmol/L (98-107); CO2 33 mmol/L (21-32); CREATININE 0.6 mg/dL (0.55-1.3); GLUCOSE,RANDOM 102 mg/dL (74-106); SODIUM 141 mmol/L (136-145)
[2018-10-27] MEDS ORDERED: metoPROLOL SUCCINATE 25 MG TAB.SR.24H (FP) PO ONE (16:28)
[2018-10-27] MEDS: POTASSIUM CHLORIDE TABS 20 MEQ TABLET.ER (FP) PO SCH ×2 (18:21→23:12)
[2018-10-27] MEDS: ATORVASTATIN CA 20 MG TABLET (FP) PO SCH (21:22)
[2018-10-28] MEDS: PARoxetine HCL 20 MG TABLET (FP) PO SCH (10:13)
[2018-10-28] MEDS: ENOXAPARIN NA (PORCINE) 40 MG/0.4 ML DISP.SYRIN SQ SCH (10:14)
[2018-10-28] MEDS: ASPIRIN COATED 81 MG TABLET.EC PO SCH (10:14)
[2018-10-28] MEDS: FUROSEMIDE 40 MG TABLET (FP) PO SCH (10:14)
[2018-10-28] MEDS: LISINOPRIL 20 MG TABLET (FP) PO SCH (10:14)
[2018-10-28] MEDS: HYDROCHLOROTHIAZIDE 25 MG TABLET (FP) PO SCH (10:14)
[2018-10-28 11:51] LABS: ANION GAP 11 MMOL/L (8-16); BLOOD UREA NITROGEN 14 mg/dL (7-18); CALCIUM 8.6 mg/dL (8.5-10.1); CHLORIDE 99 mmol/L (98-107); CO2 30 mmol/L (21-32); CREATININE 0.5 mg/dL (0.55-1.3); GLUCOSE,RANDOM 101 mg/dL (74-106); POTASSIUM 3.7 mmol/L (3.5-5.1); SODIUM 139 mmol/L (136-145)
--- NOTE | 2018-10-28 15:15 | PN ---
Teaching Attending Note Name of Resident: Trevor Hastings ATTENDING PHYSICIAN STATEMENT I saw and evaluated the patient. I reviewed the resident's note and discussed the case with the resident. I agree with the resident's findings and plan as documented. SUBJECTIVE: Patient has no complaints. OBJECTIVE: Vital Signs Period Temp Pulse Resp BP Sys/Chaves Pulse Ox Last 24 Hr 97.6 F-98.4 F 62-66 18-20 142-171/83-98 HEART: S1S2, RRR LUNGS: Clear ABDOMEN: Obese, soft, non-tender, non-distended, normal BS EXTREMITIES: 2+ edema Laboratory Results - last 24 hr 10/27/18 10/28/18 14:40 10:05 Sodium 141 139 Potassium 3.0 L 3.7 Chloride 97 L 99 Carbon Dioxide 33 H 30 Anion Gap 10 11 BUN 14 14 Creatinine 0.6 0.5 L Creat Clearance w eGFR > 60 > 60 Random Glucose 102 101 Calcium 8.9 8.6 ASSESSMENT AND PLAN: This is a 68 year old woman with a history of HTN, lymphedema, hyperlipidemia, depression who presented to the ED with increasing leg edema. 1. Worsening lymphedema of both legs - Back to baseline - Lasix changed to PO 2. 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 - Physical therapy 3. HTN - Continue Cardizem CD, Lisinopril, HCTZ, Lasix, Toprol XL 4. Hyperlipidemia - Continue Lipitor 5. Hypokalemia - Improved 6. Depression - Continue Paxil 7. Morbid obesity 8. Disposition - Plan for discharge to subacute rehab
--- NOTE | 2018-10-28 16:03 | PN ---
Physical Exam: SUBJECTIVE: Patient seen and examined at bedside this morning. She denies acute complaints. Denies lower extremity pain, parasthesias or numbness. Denies subjective fevers, chills, shortness of breath, chest pain, palpitations, abdominal pain, nausea, vomiting. Case discussed with patient's sister Jayleen [phone] who is in agreement with plan of rehab after hospital discharge. OBJECTIVE: Vital Signs Period Temp Pulse Resp BP Sys/Chaves Pulse Ox Last 24 Hr 97.6 F-98.4 F 62-66 18-20 142-171/83-98 GENERAL: The patient is awake, alert, and fully oriented, in no acute distress. HEAD: Normocephalic, atraumatic EYES: PERRL, extraocular movements intact, sclera anicteric. ENT: Oropharynx clear without exudates, moist mucous membranes. NECK: Trachea midline, full range of motion, supple. LUNGS: Breath sounds equal, clear to auscultation bilaterally, no wheezes, no crackles. HEART: Regular rate and rhythm, S1, S2 without murmur, rub or gallop. ABDOMEN: Obese. Soft, nontender, nondistended. Normoactive bowel sounds, no guarding, no rebound tenderness. EXTREMITIES: 2+ radial and dorsalis pedis pulses b/l. Significant lymphedema b/ l lower extremities. NEUROLOGICAL: Cranial nerves II through XII grossly intact. Normal speech. PSYCH: Normal mood, normal affect upon my encounter today. SKIN: Warm, dry. Laboratory Results - last 24 hr 10/27/18 10/28/18 14:40 10:05 Sodium 141 139 Potassium 3.0 L 3.7 Chloride 97 L 99 Carbon Dioxide 33 H 30 Anion Gap 10 11 BUN 14 14 Creatinine 0.6 0.5 L Creat Clearance w eGFR > 60 > 60 Random Glucose 102 101 Calcium 8.9 8.6 Active Medications Generic Name Dose Route Start Last Admin Trade Name Freq PRN Reason Stop Dose Admin Acetaminophen 650 mg 10/25/18 14:25 Tylenol - PO Q6H PRN PAIN 1-3 Aspirin 81 mg 10/26/18 10:00 10/28/18 10:14 Ecotrin - PO 81 mg DAILY YULI Administration Atorvastatin Calcium 20 mg 10/25/18 22:00 10/27/18 21:22 Lipitor - PO 20 mg HS YULI Administration Diltiazem HCl 180 mg 10/26/18 10:00 10/28/18 10:13 Cardizem Cd - PO 180 mg DAILY YULI Administration Enoxaparin Sodium 40 mg 10/25/18 14:30 10/28/18 10:14 Lovenox - SQ 40 mg DAILY YULI Administration Furosemide 40 mg 10/28/18 10:00 10/28/18 10:14 Lasix - PO 40 mg DAILY YULI Administration Hydrochlorothiazide 25 mg 10/26/18 10:00 10/28/18 10:14 Hctz - PO 25 mg DAILY YULI Administration Lisinopril 40 mg 10/26/18 10:00 10/28/18 10:14 Prinivil PO 40 mg DAILY YULI Administration Metoprolol Succinate 50 mg 10/28/18 10:00 10/28/18 10:13 Toprol Xl - PO 50 mg DAILY YULI Administration Paroxetine HCl 40 mg 10/26/18 10:00 10/28/18 10:13 Paxil - PO 40 mg DAILY YULI Administration ASSESSMENT/PLAN: Patient is a 68 year old female with history of hypertension, hyperlipidemia, morbid obesity, chronic bilateral lower extremity lymphedema presents due to knee pain. Chronic lymphedema, acute exacerbation -Patient reports improvement of strength, denies numbness, parasthesias of bilateral lower extremities -Lasix 40mg PO daily -Physical therapy evaluation appreciated. Patient walked 4 feel with walker. Will require rehab placement after discharge. Bilateral knee arthritis -Knee radiographs confirm arthritic changes in bilateral knees -Orthopedic surgery consult appreciated. No surgical intervention at this time. -Patient will follow up as an outpatient. Hypertension -Diltiazem 180mg PO daily -Lisinopril 40mg PO daily -Hydrochlorothiazide 25mg PO daily -Metoprolol increased to 50mg PO daily -Follow vital signs closely. Hyperlipidemia -Atorvastatin 20mg PO HS Depression -Paxil 20mg PO daily Morbid obesity -Counselled patient regarding weight loss, healthy diet, and exercise. -planimeter operator consult Prophylaxis -Lovenox 40mg subq daily FEN -No IV fluids -Follow CMP -Sodium controlled diet Disposition -Continue care in medical surgical floor. Patient walked 4 feet with physical therapist. Patient pending rehab placement. Visit type - Emergency Visit Emergency Visit: Yes ED Registration Date: 10/25/18 Care time: The patient presented to the Emergency Department on the above date and was hospitalized for further evaluation of their emergent condition. - New Patient This patient is new to me today: No - Critical Care Critical Care patient: No - Discharge Referral Referred to [facility] Med [facility].C.: No
[2018-10-28] MEDS: ATORVASTATIN CA 20 MG TABLET (FP) PO SCH (21:08)
[2018-10-29 10:31] VITALS: TEMP 98.2
--- NOTE | 2018-10-29 10:32 | PN ---
Progress Note (short form) - Note Progress Note: ORTHOPEDIC SURGERY PROGRESS NOTE Department of Orthopedic Surgery SUBJECTIVE No acute events overnight. No new complaints currently. Was able to stand and ambulate 4 feet with PT. Denies chest pain, shortness of breath, or calf pain. No nausea or vomiting. Tolerating oral intake. Pain improving. Intake & Output 10/25/18 10/26/18 10/27/18 23:59 23:59 23:59 Intake Total 455 830 Balance 455 830 Intake: Oral 455 830 Other: Voiding Method Incontinent Incontinent Incontinent # Unmeasured Voids Void 3 2 2 Bowel Movement No Weight 297 lb 289 lb 280 lb 3.2 oz Height 5 ft 2 in 5 ft 2 in Body Mass Index (BMI) 54.3 52.8 Weight Measurement [facility] Lift Scale Patient Lift Scale Weight Measurement Method Estimated by Staff Active Medications Generic Name Dose Route Start Last Admin Trade Name Freq PRN Reason Stop Dose Admin Acetaminophen 650 mg 10/25/18 14:25 Tylenol - PO Q6H PRN PAIN 1-3 Aspirin 81 mg 10/26/18 10:00 10/27/18 10:38 Ecotrin - PO 81 mg DAILY YULI Administration Atorvastatin Calcium 20 mg 10/25/18 22:00 10/26/18 22:04 Lipitor - PO 20 mg HS YULI Administration Diltiazem HCl 180 mg 10/26/18 10:00 10/27/18 10:37 Cardizem Cd - PO 180 mg DAILY YULI Administration Enoxaparin Sodium 40 mg 10/25/18 14:30 10/27/18 10:37 Lovenox - SQ 40 mg DAILY YULI Administration Furosemide 40 mg 10/28/18 10:00 Lasix - PO DAILY YULI Hydrochlorothiazide 25 mg 10/26/18 10:00 10/27/18 10:38 Hctz - PO 25 mg DAILY YULI Administration Lisinopril 40 mg 10/26/18 10:00 10/27/18 10:38 Prinivil PO 40 mg DAILY YULI Administration Metoprolol Succinate 25 mg 10/26/18 10:00 10/27/18 10:38 Toprol Xl - PO 25 mg DAILY YULI Administration Paroxetine HCl 40 mg 10/26/18 10:00 10/27/18 10:37 Paxil - PO 40 mg DAILY YULI Administration Vital Signs (last) Temp Pulse Resp BP Pulse Ox 98.5 F 88 18 148/79 98 10/27/18 09:13 10/27/18 09:13 10/27/18 09:13 10/27/18 09:13 10/27/18 10:00 Laboratory 10/26/18 05:50 10/26/18 05:50 PHYSICAL EXAMINATION General: Alert, oriented, cooperative and no distress. Right Lower Extremity: Significant lymphedema. Skin warm, dry, and intact. Muscle mass equal and symmetric to contralateral side. No atrophy noted. No masses or effusions noted. Tender to palpation at right knee; nontender throughout rest of extremity. No cords or calf tenderness. Passive and active ROM limited due to pain. EHL/TA/GS motor intact; SILT distally; 2+ DP pulses; Cap refill brisk. Compartments soft. Tone and reflexes normal. Left Lower Extremity: Significant lymphedema. Skin warm, dry, and intact. Muscle mass equal and symmetric to contralateral side. No atrophy noted. No masses or effusions noted. Tender to palpation at right knee; nontender throughout rest of extremity. No cords or calf tenderness. Passive and active ROM limited due to pain. EHL/TA/GS motor intact; SILT distally; 2+ DP pulses; Cap refill brisk. Compartments soft. Tone and reflexes normal. ASSESSMENT AND PLAN 68 year old female with bilateral lymphedema and bilateral knee osteoarthritis - Continue with PT; WBAT with assistance - Pain control - DVT prophylaxis - Ice/Elevation - Elevate HOB, encourage oral intake - Medical management per primary team - Appreciate medical management (Nutrition optimization, decubitus precautions heel/sacrum) Anil Magaña, DO Orthopedic Surgery
[2018-10-29] MEDS ORDERED: PT OWN MED DRAWER 7, Y5N ONE (11:45)
[2018-10-29] MEDS: LISINOPRIL 20 MG TABLET (FP) PO SCH (11:47)
[2018-10-29] MEDS: HYDROCHLOROTHIAZIDE 25 MG TABLET (FP) PO SCH (11:48)
[2018-10-29] MEDS: ASPIRIN COATED 81 MG TABLET.EC PO SCH (11:48)
[2018-10-29] MEDS: ENOXAPARIN NA (PORCINE) 40 MG/0.4 ML DISP.SYRIN SQ SCH (11:48)
[2018-10-29] MEDS: FUROSEMIDE 40 MG TABLET (FP) PO SCH (11:48)
[2018-10-29] MEDS: PARoxetine HCL 20 MG TABLET (FP) PO SCH (11:48)
--- NOTE | 2018-10-29 13:41 | PN ---
Teaching Attending Note Name of Resident: Trevor Hastings ATTENDING PHYSICIAN STATEMENT I saw and evaluated the patient. I reviewed the resident's note and discussed the case with the resident. I agree with the resident's findings and plan as documented. SUBJECTIVE: Patient has no complaints. Having difficulty ambulating - walked 5 feet with PT and required assist of 3 to return to bed. OBJECTIVE: Vital Signs Period Temp Pulse Resp BP Sys/Chaves Pulse Ox Last 24 Hr 97.8 F-98.4 F 59-83 18-20 138-156/61-89 92 HEART: S1S2, RRR LUNGS: Clear ABDOMEN: Obese, soft, non-tender, non-distended, normal BS EXTREMITIES: 2+ edema Current Medications Generic Name Dose Route Start Last Admin Trade Name Freq PRN Reason Stop Dose Admin Acetaminophen 650 mg 10/25/18 14:25 Tylenol - PO Q6H PRN PAIN 1-3 Aspirin 81 mg 10/26/18 10:00 10/29/18 11:48 Ecotrin - PO 81 mg DAILY YULI Administration Atorvastatin Calcium 20 mg 10/25/18 22:00 10/28/18 21:08 Lipitor - PO 20 mg HS YULI Administration Diltiazem HCl 180 mg 10/26/18 10:00 10/29/18 11:47 Cardizem Cd - PO 180 mg DAILY YULI Administration Enoxaparin Sodium 40 mg 10/25/18 14:30 10/29/18 11:48 Lovenox - SQ 40 mg DAILY YULI Administration Furosemide 40 mg 10/28/18 10:00 10/29/18 11:48 Lasix - PO 40 mg DAILY YULI Administration Hydrochlorothiazide 25 mg 10/26/18 10:00 10/29/18 11:48 Hctz - PO 25 mg DAILY YULI Administration Lisinopril 40 mg 10/26/18 10:00 10/29/18 11:47 Prinivil PO 40 mg DAILY YULI Administration Metoprolol Succinate 50 mg 10/28/18 10:00 10/29/18 11:48 Toprol Xl - PO 50 mg DAILY YULI Administration Paroxetine HCl 40 mg 10/26/18 10:00 10/29/18 11:48 Paxil - PO 40 mg DAILY YULI Administration ASSESSMENT AND PLAN: This is a 68 year old woman with a history of HTN, lymphedema, hyperlipidemia, depression who presented to the ED with increasing leg edema. 1. Worsening lymphedema of both legs - Back to baseline - Continue Lasix 2. 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 - Physical therapy 3. HTN - Continue Cardizem CD, Lisinopril, HCTZ, Lasix, Toprol XL 4. Hyperlipidemia - Continue Lipitor 5. Hypokalemia - Improved 6. Depression - Continue Paxil 7. Morbid obesity with BMI 48.5 8. Disposition - Ok for discharge to subacute rehab at [facility]
--- NOTE | 2018-10-29 13:45 | DS ---
Physical Exam: SUBJECTIVE: Patient seen and examined at bedside this morning. She denies acute complaints today. She denies lower extremity pain, parasthesias or numbness. Denies subjective fevers, chills, shortness of breath, chest pain, palpitations , abdominal pain, nausea, vomiting. OBJECTIVE: Vital Signs Period Temp Pulse Resp BP Sys/Chaves Pulse Ox Last 24 Hr 97.8 F-98.4 F 59-83 18-20 138-156/61-89 92 PHYSICAL EXAM GENERAL: The patient is awake, alert, and fully oriented, in no acute distress. HEAD: Normocephalic, atraumatic EYES: PERRL, extraocular movements intact, sclera anicteric. ENT: Oropharynx clear without exudates, moist mucous membranes. NECK: Trachea midline, full range of motion, supple. LUNGS: Breath sounds equal, clear to auscultation bilaterally, no wheezes, no crackles. HEART: Regular rate and rhythm, S1, S2 without murmur, rub or gallop. ABDOMEN: Obese. Soft, nontender, nondistended. Normoactive bowel sounds, no guarding, no rebound tenderness. EXTREMITIES: 2+ radial and dorsalis pedis pulses b/l. Significant lymphedema b/ l lower extremities. NEUROLOGICAL: Cranial nerves II through XII grossly intact. Normal speech. PSYCH: Normal mood, normal affect upon my encounter today. SKIN: Warm, dry. LABS HOSPITAL COURSE: Date of Admission:10/25/18 Date of Discharge: 10/29/18 Patient is a 68 year old female with history of hypertension, hyperlipidemia, morbid obesity, chronic bilateral lower extremity lymphedema presents due to knee pain, and inability to ambulate. Duplex US of lower extremities shows bilateral jamil's cysts, and no evidence of DVT. Patient was started on IV Lasix that was transitioned to oral Lasix. Patient was evaluated by orthopedic surgery who discussed no surgical intervention during the hospitalization. Home hypertension medications Diltiazem, Lisinopril, Hydrochlorothiazide, were reinstated. Home metoprolol was increased to 50mg daily. Atorvastatin for hyperlipidemia, and Paxil continued for depression. Patient walked 5 feet with physical therapy and was accepted to [facility] for rehab. Discharged to follow up with primary care physician, and orthopedic surgery. Minutes to complete discharge: 35 Discharge Summary Reason For Visit: LYMHEDEMA OF BOTH LOWER EXTREMITIES Current Active Problems Lymphedema of both lower extremities (Acute) Condition: Stable - Instructions Diet, Activity, Other Instructions: You were admitted to the hospital due to weakness and a fall. You were evaluated by orthopedic surgeon who has recommended no surgical interventions at this time. You are being discharged to rehab facility Continue taking your home medications as directed. You will begin taking Aspirin 8mg daily You will take Lasix 40mg daily We have increased your Metoprolol dose to 50mg daily to better control your blood pressure. Follow up with your primary care physician within one week of discharge. Follow up with orthopedic surgeon within one- two weeks after discharge Return to the nearest emergency department if you experience any worsening symptoms, fevers, chills, shortness of breath, chest pain, palpitations, abdominal pain, nausea, vomiting. Referrals: Anil Magaña DO [Staff Physician] - Disposition: CARE HOME FACILITY - Home Medications Comprehensive Discharge Medication List: Ambulatory Orders Aspirin [Aspirin EC] 81 mg PO DAILY 10/25/18 Atorvastatin Ca [Lipitor] 20 mg PO HS 10/25/18 Diltiazem Cd [Cardizem Cd -] 180 mg PO DAILY 10/25/18 Hydrochlorothiazide [Hctz -] 25 mg PO DAILY 10/25/18 Lisinopril [Prinivil -] 40 mg PO DAILY 10/25/18 Paroxetine HCl 40 mg PO DAILY 10/25/18 Potassium Chloride 20 meq PO BID 10/25/18 Acetaminophen [Tylenol .Regular Strength -] 650 mg PO Q6H PRN tablet 10/29/18 Metoprolol Succinate [Toprol XL -] 50 mg PO DAILY tab.sr.24h 10/29/18 This patient is new to me today: No Emergency Visit: Yes ED Registration Date: 10/25/18 Care time: The patient presented to the Emergency Department on the above date and was hospitalized for further evaluation of their emergent condition. Critical Care patient: No - Discharge Referral Referred to [facility] No
[2018-10-29 15:11] VITALS: BP 112/65; PULSE 69
== END 2018-10-29 17:39 | DRG 607 ==
LOC: JER 06:45 → JERBED 11:22 → J5S 12:52
PROVIDERS: ATTEND Internal Medicine
DX: I89.0 Lymphedema, not elsewhere classified (principal); Z68.42 Body mass index [BMI] 45.0-49.9, adult; E66.01 Morbid (severe) obesity due to excess calories; I10 Essential (primary) hypertension; E87.6 Hypokalemia; M71.21 Synovial cyst of popliteal space [Baker], right knee; M71.22 Synovial cyst of popliteal space [Baker], left knee; M17.0 Bilateral primary osteoarthritis of knee; E78.5 Hyperlipidemia, unspecified; E83.42 Hypomagnesemia; Z87.891 Personal history of nicotine dependence; R26.81 Unsteadiness on feet; F32.9 Major depressive disorder, single episode, unspecified
CPT/HCPCS: 36415; 71045-TC-FY; 73562-TC-LT-FY; 73562-TC-RT-FY; 80048; 80053; 82550; 82553; 83735; 83880; 84100; 84484; 85025; 93005; 93010; 93970-TC; 97116-GP; 97162-GP; 99282-25

== ENCOUNTER 2022-01-27 21:02 | Inpatient (IN) | payer OTHER ==
[2022-01-27 21:20] VITALS: BMI 61.9
[2022-01-27 22:04] LABS: BASO % 0.2 % (0-2.0); HEMATOCRIT 43.7 % (32.4-45.2); HEMOGLOBIN 15.1 GM/dL (10.7-15.3); LYMPH % 10.3 % (8-40); MCH 29.6 pg (25.7-33.7); MCHC 34.6 g/dl (32.0-36.0); MEAN CELL VOLUME 85.5 fl (80-96); MEAN PLT VOLUME 8.6 fl (7.5-11.1); MONO % 16.6 % (3.8-10.2); NEUT % 72.9 % (42.8-82.8); PLATELET COUNT 269 10^3/uL (134-434); RBC 5.11 M/mm3 (3.60-5.2); RDW 14.6 % (11.6-15.6); WHITE BLOOD COUNT 4.4 K/mm3 (4.0-10.0)
[2022-01-27 22:19] LABS: BLOOD UREA NITROGEN 42.2 mg/dL (7-18); CALCIUM 8.9 mg/dL (8.5-10.1)
[2022-01-27 22:22] LABS: CREATININE 1.1 mg/dL (0.55-1.3)
[2022-01-27 22:24] LABS: BILIRUBIN,TOTAL 1.4 mg/dL (0.2-1); TOT PROT 7.4 g/dl (6.4-8.2)
[2022-01-27] MEDS ORDERED: ASPIRIN 81 MG CHEWABLE TABLETS PO ONE (22:30)
[2022-01-27 22:36] LABS: EPI CELLS 19 /uL (0-25.1); HYALINE CASTS 24 /uL (0-3.1); URINE APPEARANCE CLEAR; URINE BACTERIA 56 /uL (0-1359); URINE BILIRUBIN NEGATIVE (NEGATIVE); URINE COLOR DK YELLOW; URINE GLUCOSE (UA) NEGATIVE (NEGATIVE); URINE KETONE TRACE (NEGATIVE); URINE LEUK ESTERASE NEGATIVE (NEGATIVE); URINE NITRITE NEGATIVE (NEGATIVE); URINE PROTEIN 1+ (NEGATIVE); URINE WBC 13 /uL (0-25.8)
[2022-01-27] MEDS ORDERED: ASPIRIN 81 MG CHEWABLE TABLETS ONE (23:44)
[2022-01-28 00:09] LABS: CHLORIDE 104 mmol/L (98-107); SODIUM 143 mmol/L (136-145)
[2022-01-28 00:10] LABS: CALCIUM 8.4 mg/dL (8.5-10.1)
[2022-01-28 00:11] LABS: ANION GAP 9 MMOL/L (8-16); BLOOD UREA NITROGEN 42.1 mg/dL (7-18); CO2 30 mmol/L (21-32); GLUCOSE,RANDOM 134 mg/dL (74-106)
[2022-01-28 00:15] LABS: CREATININE 0.9 mg/dL (0.55-1.3)
[2022-01-28] MEDS ORDERED: POTASSIUM CHLORIDE TABS 20 MEQ TABLET.ER (FP) PO ONE ×2 (00:58→01:10)
[2022-01-28 01:23] LABS: MAGNESIUM 2.2 mg/dL (1.8-2.4)
[2022-01-28] MEDS ORDERED: ALBUTEROL SO4 HFA INHALER IH PRN (04:33)
[2022-01-28] MEDS ORDERED: SODIUM CHLORIDE 1,000 ML IV SCH (05:00)
[2022-01-28] MEDS ORDERED: LISINOPRIL 20 MG TABLET ONE ×2 (05:08→09:09)
[2022-01-28] MEDS: LISINOPRIL 20 MG TABLET PO SCH ×2 (05:19→09:30)
[2022-01-28 06:19] LABS: BASO % 0.3 % (0-2.0); EOS % 1.4 % (0-4.5); HEMATOCRIT 41.5 % (32.4-45.2); HEMOGLOBIN 13.7 GM/dL (10.7-15.3); LYMPH % 18.7 % (8-40); MCH 28.9 pg (25.7-33.7); MCHC 33.1 g/dl (32.0-36.0); MEAN CELL VOLUME 87.3 fl (80-96); MEAN PLT VOLUME 8.9 fl (7.5-11.1); MONO % 12.8 % (3.8-10.2); NEUT % 66.8 % (42.8-82.8); PLATELET COUNT 226 10^3/uL (134-434); RBC 4.75 M/mm3 (3.60-5.2); RDW 14.9 % (11.6-15.6); WHITE BLOOD COUNT 4.4 K/mm3 (4.0-10.0)
[2022-01-28 06:38] LABS: CALCIUM 8.3 mg/dL (8.5-10.1); MAGNESIUM 2.2 mg/dL (1.8-2.4)
[2022-01-28 06:40] LABS: ALBUMIN 3.4 g/dl (3.4-5.0)
[2022-01-28 06:42] LABS: CREATININE 0.8 mg/dL (0.55-1.3)
[2022-01-28 06:43] LABS: BILIRUBIN,DIRECT 0.3 mg/dL (0.0-0.2)
[2022-01-28 06:44] LABS: TOT PROT 6.3 g/dl (6.4-8.2)
[2022-01-28 06:45] LABS: BILIRUBIN,TOTAL 1.3 mg/dL (0.2-1)
[2022-01-28] MEDS ORDERED: ASPIRIN COATED 81 MG TABLET.EC ONE (09:08)
[2022-01-28] MEDS ORDERED: ENOXAPARIN NA (PORCINE) 40 MG/0.4 ML DISP.SYRIN SQ ONE (09:09)
[2022-01-28] MEDS ORDERED: ALBUTEROL SO4 2.5/IPRATROPIUM 0.5 INH SOL 3 ML VIAL.NEB. NEB PRN (09:15)
[2022-01-28] MEDS ORDERED: ALBUTEROL SO4 HFA INHALER IH ONE (09:26)
[2022-01-28] MEDS ORDERED: HYDROCHLOROTHIAZIDE 25 MG TABLET (FP) PO SCH (10:00)
[2022-01-28] MEDS ORDERED: ENOXAPARIN NA (PORCINE) 40 MG/0.4 ML DISP.SYRIN SQ SCH (10:00)
[2022-01-28] MEDS ORDERED: ASPIRIN COATED 81 MG TABLET.EC PO SCH (10:00)
[2022-01-28] MEDS ORDERED: POTASSIUM CHLORIDE 20 MEQ PREMIX IVPB 100 ML IVPB ONE (10:35)
[2022-01-28] MEDS ORDERED: POTASSIUM CHLORIDE 10 MEQ PREMIX IVPB (POTASSIUM RIDER) IVPB ONE (10:35)
[2022-01-28] MEDS ORDERED: POTASSIUM CHLORIDE ORAL LIQUID 20 MEQ/15 ML PO SCH (10:45)
[2022-01-28] MEDS ORDERED: ARTIFICIAL TEARS (POLYVINYL ALCOHOL) OPTH DROPS OU PRN (10:48)
[2022-01-28] MEDS ORDERED: POLYETHYLENE GLYCOL (HEALTHYLAX) 3350 17 GM PACKET PO SCH (11:00)
[2022-01-28] MEDS ORDERED: ALBUTEROL SO4 2.5/IPRATROPIUM 0.5 INH SOL 3 ML VIAL.NEB. NEB SCH (12:00)
[2022-01-28] MEDS: APIXABAN 5 MG TABLET PO SCH ×2 (12:23→22:45)
[2022-01-28] MEDS: POTASSIUM CHLORIDE ORAL LIQUID 20 MEQ/15 ML PO SCH (12:23)
[2022-01-28] MEDS: VANCOMYCIN 250 MG/5 ML ORAL SOLUTION PO SCH ×2 (12:24→18:28)
[2022-01-28] MEDS: CLOTRIMAZOLE 1% CREAM TP SCH ×2 (12:32→22:52)
[2022-01-28] MEDS ORDERED: SENNOSIDES 8.6MG TABLET (FP) PO SCH (22:00)
[2022-01-28] MEDS: BUDESONIDE/FORMETEROL FUMARATE 80/4.5 mcg INHALER IH SCH (22:45)
[2022-01-28] MEDS: ATORVASTATIN CA 20 MG TABLET (FP) PO SCH (22:45)
[2022-01-29] MEDS: POTASSIUM CHLORIDE ORAL LIQUID 20 MEQ/15 ML PO SCH (00:31)
[2022-01-29] MEDS: VANCOMYCIN 250 MG/5 ML ORAL SOLUTION PO SCH ×5 (00:32→23:49)
[2022-01-29 07:33] LABS: BASO % 0.8 % (0-2.0); EOS % 4.7 % (0-4.5); HEMATOCRIT 34.6 % (32.4-45.2); HEMOGLOBIN 11.6 GM/dL (10.7-15.3); LYMPH % 23.7 % (8-40); MCH 29.3 pg (25.7-33.7); MCHC 33.6 g/dl (32.0-36.0); MEAN CELL VOLUME 87.3 fl (80-96); MEAN PLT VOLUME 8.9 fl (7.5-11.1); MONO % 14.5 % (3.8-10.2); NEUT % 56.3 % (42.8-82.8); PLATELET COUNT 187 10^3/uL (134-434); RBC 3.96 M/mm3 (3.60-5.2); RDW 15.2 % (11.6-15.6); WHITE BLOOD COUNT 5.4 K/mm3 (4.0-10.0)
[2022-01-29 07:48] LABS: BLOOD UREA NITROGEN 28.4 mg/dL (7-18); CALCIUM 7.7 mg/dL (8.5-10.1); MAGNESIUM 1.9 mg/dL (1.8-2.4)
[2022-01-29 07:52] LABS: CREATININE 0.6 mg/dL (0.55-1.3); PHOSPHOROUS 2.7 mg/dL (2.5-4.9)
[2022-01-29 07:53] LABS: BILIRUBIN,TOTAL 0.7 mg/dL (0.2-1); TOT PROT 5.7 g/dl (6.4-8.2)
[2022-01-29] MEDS: PARoxetine HCL 20 MG TABLET PO SCH (09:06)
[2022-01-29] MEDS: APIXABAN 5 MG TABLET PO SCH ×2 (09:06→22:20)
[2022-01-29] MEDS: CLOTRIMAZOLE 1% CREAM TP SCH ×2 (09:07→22:20)
[2022-01-29] MEDS: BUDESONIDE/FORMETEROL FUMARATE 80/4.5 mcg INHALER IH SCH ×2 (09:17→22:19)
[2022-01-29] MEDS ORDERED: cefTRIAXone SODIUM 1 GM VIAL ONE (17:01)
[2022-01-29] MEDS ORDERED: DEXTROSE 5%-WATER - 50 ML IVPB ONE (17:01)
[2022-01-29] MEDS: CEFTRIAXONE 1 GM in DEXTROSE 5%-WATER - 50 ML IVPB SCH (17:03)
[2022-01-29] MEDS ORDERED: D5-NS + 20 MEQ KCL - 20 MEQ/1,000 ML INFUS.BAG IV SCH ×2 (18:00)
[2022-01-29] MEDS: ATORVASTATIN CA 20 MG TABLET (FP) PO SCH (22:20)
[2022-01-30 06:29] LABS: BASO % 0.5 % (0-2.0); HEMATOCRIT 34.8 % (32.4-45.2); HEMOGLOBIN 11.5 GM/dL (10.7-15.3); LYMPH % 21.2 % (8-40); MCH 29.1 pg (25.7-33.7); MCHC 33.2 g/dl (32.0-36.0); MEAN CELL VOLUME 87.8 fl (80-96); MEAN PLT VOLUME 8.9 fl (7.5-11.1); MONO % 10.7 % (3.8-10.2); NEUT % 63.6 % (42.8-82.8); PLATELET COUNT 189 10^3/uL (134-434); RBC 3.96 M/mm3 (3.60-5.2); RDW 14.8 % (11.6-15.6); WHITE BLOOD COUNT 5.5 K/mm3 (4.0-10.0)
[2022-01-30] MEDS: VANCOMYCIN 250 MG/5 ML ORAL SOLUTION PO SCH ×4 (06:36→23:19)
[2022-01-30 06:50] LABS: ALBUMIN 2.8 g/dl (3.4-5.0); BLOOD UREA NITROGEN 14.8 mg/dL (7-18); CALCIUM 7.6 mg/dL (8.5-10.1); MAGNESIUM 1.9 mg/dL (1.8-2.4)
[2022-01-30 06:53] LABS: CREATININE 0.4 mg/dL (0.55-1.3); PHOSPHOROUS 2.7 mg/dL (2.5-4.9)
[2022-01-30 06:55] LABS: BILIRUBIN,TOTAL 0.5 mg/dL (0.2-1); TOT PROT 5.4 g/dl (6.4-8.2)
[2022-01-30] MEDS ORDERED: DEXTROSE 5%-WATER - 50 ML IVPB ONE (09:02)
[2022-01-30] MEDS ORDERED: cefTRIAXone SODIUM 1 GM VIAL ONE (09:02)
[2022-01-30] MEDS: PARoxetine HCL 20 MG TABLET PO SCH (09:21)
[2022-01-30] MEDS: CEFTRIAXONE 1 GM in DEXTROSE 5%-WATER - 50 ML IVPB SCH (09:21)
[2022-01-30] MEDS: APIXABAN 5 MG TABLET PO SCH ×2 (09:21→22:02)
[2022-01-30] MEDS: LISINOPRIL 20 MG TABLET PO SCH (09:21)
[2022-01-30] MEDS: BUDESONIDE/FORMETEROL FUMARATE 80/4.5 mcg INHALER IH SCH ×2 (09:22→22:03)
[2022-01-30] MEDS: CLOTRIMAZOLE 1% CREAM TP SCH ×2 (09:22→22:03)
[2022-01-30] MEDS: metoPROLOL SUCCINATE 25 MG TAB.SR.24H (FP) PO SCH (10:22)
[2022-01-30] MEDS: ALBUTEROL SO4 2.5/IPRATROPIUM 0.5 INH SOL 3 ML VIAL.NEB. NEB SCH ×3 (12:17→20:10)
[2022-01-30 14:24] LABS: URINE APPEARANCE CLEAR; URINE BILIRUBIN NEGATIVE (NEGATIVE); URINE COLOR YELLOW; URINE GLUCOSE (UA) NEGATIVE (NEGATIVE); URINE KETONE 1+ (NEGATIVE); URINE LEUK ESTERASE NEGATIVE (NEGATIVE); URINE NITRITE NEGATIVE (NEGATIVE); URINE PROTEIN NEGATIVE (NEGATIVE); URINE UROBILINOGEN 0.2 mg/dL (0.2-1.0)
[2022-01-30] MEDS: HYDROCHLOROTHIAZIDE 25 MG TABLET (FP) PO SCH (14:26)
[2022-01-30] MEDS: ATORVASTATIN CA 20 MG TABLET (FP) PO SCH (22:02)
[2022-01-30] MEDS ORDERED: LABETALOL HCL 5 MG/1 ML (100MG/20 ML VIAL) IVPUSH ONE (22:19)
[2022-01-31] MEDS: VANCOMYCIN 250 MG/5 ML ORAL SOLUTION PO SCH ×3 (05:46→17:46)
[2022-01-31 06:59] LABS: BASO % 0.6 % (0-2.0); EOS % 2.2 % (0-4.5); HEMATOCRIT 35.4 % (32.4-45.2); HEMOGLOBIN 12.2 GM/dL (10.7-15.3); LYMPH % 14.9 % (8-40); MCH 29.4 pg (25.7-33.7); MCHC 34.5 g/dl (32.0-36.0); MEAN CELL VOLUME 85.3 fl (80-96); MEAN PLT VOLUME 8.7 fl (7.5-11.1); MONO % 7.8 % (3.8-10.2); NEUT % 74.5 % (42.8-82.8); PLATELET COUNT 179 10^3/uL (134-434); RBC 4.14 M/mm3 (3.60-5.2); RDW 14.4 % (11.6-15.6); WHITE BLOOD COUNT 6.7 K/mm3 (4.0-10.0)
[2022-01-31 07:19] LABS: CALCIUM 7.9 mg/dL (8.5-10.1)
[2022-01-31 07:20] LABS: MAGNESIUM 1.9 mg/dL (1.8-2.4)
[2022-01-31 07:23] LABS: CREATININE 0.4 mg/dL (0.55-1.3); PHOSPHOROUS 2.9 mg/dL (2.5-4.9)
[2022-01-31] MEDS: HYDROCHLOROTHIAZIDE 25 MG TABLET (FP) PO SCH ×2 (08:12→09:14)
[2022-01-31] MEDS: LISINOPRIL 20 MG TABLET PO SCH ×2 (08:12→09:14)
[2022-01-31] MEDS: ALBUTEROL SO4 2.5/IPRATROPIUM 0.5 INH SOL 3 ML VIAL.NEB. NEB SCH ×4 (08:21→19:52)
[2022-01-31] MEDS: PARoxetine HCL 20 MG TABLET PO SCH (09:24)
[2022-01-31] MEDS: APIXABAN 5 MG TABLET PO SCH ×2 (09:24→21:07)
[2022-01-31] MEDS: CLOTRIMAZOLE 1% CREAM TP SCH ×2 (09:48→21:07)
[2022-01-31] MEDS: metoPROLOL SUCCINATE 25 MG TAB.SR.24H (FP) PO SCH (09:49)
[2022-01-31] MEDS: BUDESONIDE/FORMETEROL FUMARATE 80/4.5 mcg INHALER IH SCH ×2 (09:49→22:00)
[2022-01-31] MEDS: POTASSIUM CHLORIDE ORAL LIQUID 20 MEQ/15 ML PO SCH ×2 (11:21→21:07)
[2022-01-31] MEDS ORDERED: hydrALAZINE HCL 20 MG/ML VIAL IVPUSH ONE (13:32)
[2022-01-31] MEDS: ATORVASTATIN CA 20 MG TABLET (FP) PO SCH (21:07)
[2022-02-01] MEDS: VANCOMYCIN 250 MG/5 ML ORAL SOLUTION PO SCH ×4 (00:21→17:37)
[2022-02-01] MEDS ORDERED: hydrALAZINE HCL 10 MG TABLET PO ONE (03:15)
[2022-02-01] MEDS ORDERED: hydrALAZINE HCL 20 MG/ML VIAL IVPUSH ONE (06:44)
[2022-02-01 06:52] LABS: HEMATOCRIT 40.5 % (32.4-45.2); HEMOGLOBIN 13.7 GM/dL (10.7-15.3); MCH 28.9 pg (25.7-33.7); MCHC 33.9 g/dl (32.0-36.0); MEAN CELL VOLUME 85.3 fl (80-96); MEAN PLT VOLUME 8.7 fl (7.5-11.1); PLATELET COUNT 205 10^3/uL (134-434); RBC 4.74 M/mm3 (3.60-5.2); RDW 14.3 % (11.6-15.6); WHITE BLOOD COUNT 9.5 K/mm3 (4.0-10.0)
[2022-02-01 07:07] LABS: CALCIUM 8.8 mg/dL (8.5-10.1)
[2022-02-01 07:08] LABS: BLOOD UREA NITROGEN 4.1 mg/dL (7-18); MAGNESIUM 1.9 mg/dL (1.8-2.4)
[2022-02-01 07:11] LABS: CREATININE 0.5 mg/dL (0.55-1.3); PHOSPHOROUS 3.6 mg/dL (2.5-4.9)
[2022-02-01 07:12] LABS: TOT PROT 6.6 g/dl (6.4-8.2)
[2022-02-01 07:13] LABS: BILIRUBIN,TOTAL 0.9 mg/dL (0.2-1)
[2022-02-01 07:15] LABS: ALBUMIN 3.5 g/dl (3.4-5.0)
[2022-02-01] MEDS: ALBUTEROL SO4 2.5/IPRATROPIUM 0.5 INH SOL 3 ML VIAL.NEB. NEB SCH ×4 (08:00→20:17)
[2022-02-01] MEDS ORDERED: KCL 10 MEQ IVPB 10 MEQ/100 ML INFUS.BAG IVPB SCH (08:00)
[2022-02-01] MEDS: HYDROCHLOROTHIAZIDE 25 MG TABLET (FP) PO SCH (09:02)
[2022-02-01] MEDS: metoPROLOL SUCCINATE 25 MG TAB.SR.24H (FP) PO SCH (09:02)
[2022-02-01] MEDS: LISINOPRIL 20 MG TABLET PO SCH (09:02)
[2022-02-01] MEDS: BUDESONIDE/FORMETEROL FUMARATE 80/4.5 mcg INHALER IH SCH ×2 (09:02→21:16)
[2022-02-01] MEDS: CLOTRIMAZOLE 1% CREAM TP SCH ×2 (09:02→21:17)
[2022-02-01] MEDS: POTASSIUM CHLORIDE ORAL LIQUID 20 MEQ/15 ML PO SCH ×2 (09:02→21:16)
[2022-02-01] MEDS: PARoxetine HCL 20 MG TABLET PO SCH (09:02)
[2022-02-01] MEDS: APIXABAN 5 MG TABLET PO SCH ×2 (09:15→21:16)
[2022-02-01 10:22] LABS: ANISOCYTOSIS 1+; MACROCYTOSIS 0
[2022-02-01] MEDS: hydrALAZINE HCL 50 MG TABLET (FP) PO SCH ×2 (13:43→21:17)
[2022-02-01] MEDS: ATORVASTATIN CA 20 MG TABLET (FP) PO SCH (21:16)
[2022-02-02] MEDS: VANCOMYCIN 250 MG/5 ML ORAL SOLUTION PO SCH ×4 (00:13→17:36)
[2022-02-02] MEDS: hydrALAZINE HCL 50 MG TABLET (FP) PO SCH ×3 (05:54→21:07)
[2022-02-02 07:10] LABS: HEMATOCRIT 35.9 % (32.4-45.2); HEMOGLOBIN 12.2 GM/dL (10.7-15.3); MCH 29.1 pg (25.7-33.7); MCHC 33.9 g/dl (32.0-36.0); MEAN CELL VOLUME 85.6 fl (80-96); PLATELET COUNT 222 10^3/uL (134-434); RBC 4.19 M/mm3 (3.60-5.2); RDW 14.3 % (11.6-15.6); WHITE BLOOD COUNT 10.1 K/mm3 (4.0-10.0)
[2022-02-02 07:39] LABS: BLOOD UREA NITROGEN 8.9 mg/dL (7-18); CALCIUM 7.9 mg/dL (8.5-10.1); MAGNESIUM 1.7 mg/dL (1.8-2.4)
[2022-02-02 07:41] LABS: PHOSPHOROUS 3.9 mg/dL (2.5-4.9)
[2022-02-02 07:42] LABS: CREATININE 0.5 mg/dL (0.55-1.3)
[2022-02-02] MEDS: ALBUTEROL SO4 2.5/IPRATROPIUM 0.5 INH SOL 3 ML VIAL.NEB. NEB SCH ×4 (08:00→20:22)
[2022-02-02] MEDS: APIXABAN 5 MG TABLET PO SCH ×2 (09:24→21:07)
[2022-02-02] MEDS: PARoxetine HCL 20 MG TABLET PO SCH (09:24)
[2022-02-02] MEDS: LISINOPRIL 20 MG TABLET PO SCH (09:26)
[2022-02-02] MEDS: metoPROLOL SUCCINATE 25 MG TAB.SR.24H (FP) PO SCH (09:26)
[2022-02-02 09:27] LABS: ANISOCYTOSIS 0; MACROCYTOSIS 0
[2022-02-02] MEDS: CLOTRIMAZOLE 1% CREAM TP SCH ×2 (09:27→21:07)
[2022-02-02] MEDS: BUDESONIDE/FORMETEROL FUMARATE 80/4.5 mcg INHALER IH SCH ×2 (09:28→21:07)
[2022-02-02] MEDS: ATORVASTATIN CA 20 MG TABLET (FP) PO SCH (21:07)
[2022-02-03] MEDS: hydrALAZINE HCL 50 MG TABLET (FP) PO SCH ×3 (06:14→22:14)
[2022-02-03] MEDS: VANCOMYCIN 250 MG/5 ML ORAL SOLUTION PO SCH ×4 (06:14→17:28)
[2022-02-03 06:40] LABS: HEMATOCRIT 36.4 % (32.4-45.2); HEMOGLOBIN 12.4 GM/dL (10.7-15.3); MCH 29.6 pg (25.7-33.7); MCHC 33.9 g/dl (32.0-36.0); MEAN CELL VOLUME 87.1 fl (80-96); MEAN PLT VOLUME 9.2 fl (7.5-11.1); PLATELET COUNT 224 10^3/uL (134-434); RBC 4.18 M/mm3 (3.60-5.2); WHITE BLOOD COUNT 9.9 K/mm3 (4.0-10.0)
[2022-02-03 06:52] LABS: BLOOD UREA NITROGEN 15.3 mg/dL (7-18); CALCIUM 7.7 mg/dL (8.5-10.1); MAGNESIUM 1.8 mg/dL (1.8-2.4)
[2022-02-03 06:55] LABS: CREATININE 0.6 mg/dL (0.55-1.3); PHOSPHOROUS 3.8 mg/dL (2.5-4.9)
[2022-02-03] MEDS: ALBUTEROL SO4 2.5/IPRATROPIUM 0.5 INH SOL 3 ML VIAL.NEB. NEB SCH ×4 (07:47→20:13)
[2022-02-03] MEDS: ZINC OXIDE 20% TOPICAL OINTMENT 30 GM TUBE TP SCH ×2 (10:08→22:14)
[2022-02-03] MEDS: CLOTRIMAZOLE 1% CREAM TP SCH ×2 (10:09→22:07)
[2022-02-03] MEDS: metoPROLOL SUCCINATE 25 MG TAB.SR.24H (FP) PO SCH (10:09)
[2022-02-03] MEDS: PARoxetine HCL 20 MG TABLET PO SCH (10:09)
[2022-02-03] MEDS: APIXABAN 5 MG TABLET PO SCH ×2 (10:09→22:06)
[2022-02-03] MEDS: BUDESONIDE/FORMETEROL FUMARATE 80/4.5 mcg INHALER IH SCH ×2 (10:10→22:07)
[2022-02-03 11:22] LABS: ANISOCYTOSIS 0; HELMET CELLS 0; HOWELL-JOLLY BODIES 0; MACROCYTOSIS 0; OVALOCYTE 0; ROULEAU 0; SICKELED CELLS 0; TARGET CELLS 0; TEAR DROP CELLS 0; TOXIC GRANULATION 0
[2022-02-03] MEDS: LISINOPRIL 20 MG TABLET PO SCH (14:17)
[2022-02-03] MEDS: ATORVASTATIN CA 20 MG TABLET (FP) PO SCH (22:06)
[2022-02-04] MEDS: VANCOMYCIN 250 MG/5 ML ORAL SOLUTION PO SCH ×2 (00:04→05:37)
[2022-02-04] MEDS: hydrALAZINE HCL 50 MG TABLET (FP) PO SCH ×3 (05:38→22:38)
[2022-02-04 06:30] LABS: BASO % 0.9 % (0-2.0); EOS % 2.3 % (0-4.5); HEMATOCRIT 36.9 % (32.4-45.2); HEMOGLOBIN 12.2 GM/dL (10.7-15.3); LYMPH % 16.2 % (8-40); MCH 28.9 pg (25.7-33.7); MEAN CELL VOLUME 87.7 fl (80-96); MEAN PLT VOLUME 9.2 fl (7.5-11.1); MONO % 9.5 % (3.8-10.2); NEUT % 71.1 % (42.8-82.8); PLATELET COUNT 241 10^3/uL (134-434); RBC 4.21 M/mm3 (3.60-5.2); RDW 14.9 % (11.6-15.6); WHITE BLOOD COUNT 10.1 K/mm3 (4.0-10.0)
[2022-02-04 06:52] LABS: ALBUMIN 2.9 g/dl (3.4-5.0); BLOOD UREA NITROGEN 20.6 mg/dL (7-18); MAGNESIUM 2.1 mg/dL (1.8-2.4)
[2022-02-04 06:55] LABS: CREATININE 0.6 mg/dL (0.55-1.3); PHOSPHOROUS 4.1 mg/dL (2.5-4.9)
[2022-02-04 06:56] LABS: BILIRUBIN,TOTAL 0.6 mg/dL (0.2-1); TOT PROT 5.8 g/dl (6.4-8.2)
[2022-02-04] MEDS: ALBUTEROL SO4 2.5/IPRATROPIUM 0.5 INH SOL 3 ML VIAL.NEB. NEB SCH (07:34)
[2022-02-04] MEDS: CLOTRIMAZOLE 1% CREAM TP SCH ×2 (10:36→22:39)
[2022-02-04] MEDS: metoPROLOL SUCCINATE 25 MG TAB.SR.24H (FP) PO SCH (10:36)
[2022-02-04] MEDS: ZINC OXIDE 20% TOPICAL OINTMENT 30 GM TUBE TP SCH ×2 (10:36→22:39)
[2022-02-04] MEDS: PARoxetine HCL 20 MG TABLET PO SCH (10:36)
[2022-02-04] MEDS: APIXABAN 5 MG TABLET PO SCH ×2 (10:37→22:38)
[2022-02-04] MEDS: BUDESONIDE/FORMETEROL FUMARATE 80/4.5 mcg INHALER IH SCH ×2 (10:39→22:39)
[2022-02-04] MEDS: LISINOPRIL 20 MG TABLET PO SCH ×2 (12:49→15:37)
[2022-02-04] MEDS: ATORVASTATIN CA 20 MG TABLET (FP) PO SCH (22:38)
[2022-02-05] MEDS: hydrALAZINE HCL 50 MG TABLET (FP) PO SCH (07:37)
[2022-02-05 09:23] VITALS: TEMP 98
[2022-02-05] MEDS: LISINOPRIL 20 MG TABLET PO SCH (09:43)
[2022-02-05] MEDS: PARoxetine HCL 20 MG TABLET PO SCH (09:43)
[2022-02-05] MEDS: APIXABAN 5 MG TABLET PO SCH (09:43)
[2022-02-05] MEDS: CLOTRIMAZOLE 1% CREAM TP SCH ×2 (10:13→10:16)
[2022-02-05] MEDS: BUDESONIDE/FORMETEROL FUMARATE 80/4.5 mcg INHALER IH SCH (10:14)
[2022-02-05] MEDS: metoPROLOL SUCCINATE 25 MG TAB.SR.24H (FP) PO SCH (10:14)
[2022-02-05] MEDS: ZINC OXIDE 20% TOPICAL OINTMENT 30 GM TUBE TP SCH (10:14)
[2022-02-05] MEDS ORDERED: VANCOMYCIN 250 MG/5 ML ORAL SOLUTION PO SCH (12:00)
[2022-02-05] MEDS ORDERED: LISINOPRIL 20 MG TABLET PO SCH (12:30)
[2022-02-05] MEDS ORDERED: SODIUM CHLORIDE 250 ML IV STA (12:32)
[2022-02-05 16:46] VITALS: BP 100/50; PULSE 52
== END 2022-02-05 18:15 | DRG 372 ==
LOC: JER 21:02 → JERBED 01-28 00:57 → OBSVTOIN 01-28 03:30 → J2W 01-28 10:46
PROVIDERS: ADMIT Internal Medicine; ATTEND Internal Medicine
DX: A04.72 Enterocolitis due to Clostridium difficile, not specified as recurrent (principal); J44.1 Chronic obstructive pulmonary disease with (acute) exacerbation; I24.8 Other forms of acute ischemic heart disease; K56.609 Unspecified intestinal obstruction, unspecified as to partial versus complete obstruction; Z68.44 Body mass index [BMI] 60.0-69.9, adult; B37.89 Other sites of candidiasis; N39.0 Urinary tract infection, site not specified; E66.01 Morbid (severe) obesity due to excess calories; E78.5 Hyperlipidemia, unspecified; I10 Essential (primary) hypertension; I89.0 Lymphedema, not elsewhere classified; E87.6 Hypokalemia; G47.33 Obstructive sleep apnea (adult) (pediatric); I11.9 Hypertensive heart disease without heart failure; I25.10 Atherosclerotic heart disease of native coronary artery without angina pectoris; B96.20 Unspecified Escherichia coli [E. coli] as the cause of diseases classified elsewhere
CPT/HCPCS: 36415; 71045-TC-FY; 71275-TC; 74018-TC-FY; 80048; 80053; 80061; 81003; 82248; 82962; 83036; 83605; 83690; 83735; 84100; 84443; 84484; 85025; 87040; 87045; 87046; 87086; 87177; 87186; 87205; 87209; 87324; 87449; 87493; 87798; 87804; 93005; 93010; 93306-TC; 94640; 97116-GP; 97161-GP; 99285-25; C9803-CS; G0378; Q9967; U0003; U0005